=== PATIENT | male | born 1950 | race African-American/Black ===

== ENCOUNTER 2017-05-25 22:07 | Inpatient (IN) ==
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
[2017-05-25] MEDS ORDERED: MORPHINE 2 MG/1 ML SYRINGE IV STA (22:26)
[2017-05-25] MEDS ORDERED: ONDANSETRON 4 MG/2 ML VIAL IV STA (22:26)
[2017-05-25] MEDS ORDERED: MORPHINE 2 MG/1 ML SYRINGE ONE (22:28)
[2017-05-25] MEDS ORDERED: ONDANSETRON 4 MG/2 ML VIAL ONE (23:33)
[2017-05-26] MEDS ORDERED: MORPHINE 2 MG/1 ML SYRINGE IV STA
[2017-05-26] MEDS ORDERED: ONDANSETRON 4 MG/2 ML VIAL IV STA
[2017-05-26 01:46] LABS: Basophils % 0.4 % (0.0-0.8); Eosinophils # 0.1 10*3/uL (0.0-0.87); Eosinophils % 1.9 % (0.00-10.9); Hematocrit 36.4 VOL% (42.0-52.0); Hemoglobin 12.9 GM/DL (14.0-18.0); Immature Granulocytes % 0.4 %; Immature Granulocytes Absolute 0.03 #; Lymphocytes # 1.8 10*3/uL (1.4-4.0); Lymphocytes % 26.6 % (21.2-54.2); Mean Corpuscular HGB Conc 35.4 GM/DL (32-36); Mean Corpuscular Hemoglobin 28 PG (27-34); Mean Corpuscular Volume 78.6 FL (87-102); Mean Platelet Volume 10.7 FL (9.6-12.0); Monocytes # 0.5 10*3/uL (0.11-0.8); Monocytes % 6.7 % (1.7-12.7); Neutrophils # 4.4 10*3/uL (1.4-7.4); Platelet Count 186 T/CUMM (130-400); Red Blood Count 4.63 MC/CUMM (3.8-5.5); Red Cell Distribution Width 12.4 % (9.3-17.3); White Blood Count 6.8 T/CUMM (4-12)
[2017-05-26 02:22] LABS: Alanine Aminotransferase 34 U/L (16-61); Albumin 3.6 G/DL (3.4-5.0); Alkaline Phosphatase 120 U/L (45-117); Aspartate Amino Transferase 30 U/L (0-37); Blood Urea Nitrogen 26 MG/DL (7-18); Calcium 8.5 MG/DL (8.5-10.1); Glucose 224 MG/DL (74-106); Sodium 136 MMOL/L (136-145); Total Protein 7.4 G/DL (6.4-8.3); Troponin I Only < 0.015 NG/ML (0.00-0.045)
[2017-05-26] MEDS ORDERED: SODIUM CHLORIDE 0.9% 2,000 ML IV STA (03:26)
[2017-05-26] MEDS ORDERED: ONDANSETRON 4 MG/2 ML VIAL IV PRN (03:26)
[2017-05-26] MEDS ORDERED: SODIUM CHLORIDE 0.45% 1,000 ML IV SCH (03:30)
[2017-05-26] MEDS ORDERED: DEXTROSE 50% 25 GM/50 ML VIAL IV PRN (06:00)
[2017-05-26] MEDS ORDERED: GLUCAGON 1 MG VIAL IM PRN ×2 (06:00→11:49)
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
[2017-05-26] MEDS: PANTOPRAZOLE 40 MG TABLET PO SCH (08:38)
[2017-05-26 09:52] LABS: Basophils % 0.3 % (0.0-0.8); Eosinophils # 0.1 10*3/uL (0.0-0.87); Eosinophils % 1.6 % (0.00-10.9); Hematocrit 36.5 VOL% (42.0-52.0); Hemoglobin 12.9 GM/DL (14.0-18.0); Immature Granulocytes % 0.2 %; Immature Granulocytes Absolute 0.01 #; Lymphocytes # 1.5 10*3/uL (1.4-4.0); Lymphocytes % 23.7 % (21.2-54.2); Mean Corpuscular HGB Conc 35.3 GM/DL (32-36); Mean Corpuscular Hemoglobin 28 PG (27-34); Mean Corpuscular Volume 79.2 FL (87-102); Mean Platelet Volume 10.3 FL (9.6-12.0); Monocytes # 0.5 10*3/uL (0.11-0.8); Monocytes % 7.4 % (1.7-12.7); Neutrophils # 4.2 10*3/uL (1.4-7.4); Neutrophils % 66.8 % (38.7-73.9); Platelet Count 174 T/CUMM (130-400); Red Blood Count 4.61 MC/CUMM (3.8-5.5); Red Cell Distribution Width 12.4 % (9.3-17.3); White Blood Count 6.3 T/CUMM (4-12)
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
[2017-05-26] MEDS ORDERED: DEXTROSE 50% 25 GM/50 ML SYRINGE IV PRN (11:49)
[2017-05-26] MEDS: INSULIN REGULAR 100 UNIT/ML SUBCUT SCH ×2 (17:35→21:36)
[2017-05-26] MEDS: INSULIN GLARGINE 100 UNIT/ML SUBCUT SCH (21:36)
[2017-05-27 04:46] LABS: Basophils % 0.6 % (0.0-0.8); Eosinophils # 0.2 10*3/uL (0.0-0.87); Eosinophils % 3.1 % (0.00-10.9); Hematocrit 35.1 VOL% (42.0-52.0); Hemoglobin 12.1 GM/DL (14.0-18.0); Immature Granulocytes % 0.2 %; Immature Granulocytes Absolute 0.01 #; Lymphocytes # 1.6 10*3/uL (1.4-4.0); Mean Corpuscular HGB Conc 34.5 GM/DL (32-36); Mean Corpuscular Hemoglobin 27 PG (27-34); Mean Corpuscular Volume 78.9 FL (87-102); Mean Platelet Volume 11.1 FL (9.6-12.0); Monocytes # 0.3 10*3/uL (0.11-0.8); Monocytes % 6.9 % (1.7-12.7); Neutrophils # 2.8 10*3/uL (1.4-7.4); Neutrophils % 57.2 % (38.7-73.9); Platelet Count 176 T/CUMM (130-400); Red Blood Count 4.45 MC/CUMM (3.8-5.5); Red Cell Distribution Width 12.5 % (9.3-17.3); White Blood Count 4.9 T/CUMM (4-12)
[2017-05-27 05:20] LABS: Calcium 7.7 MG/DL (8.5-10.1); Osmolality,Calculated 287.8 MOS/KG (273-304); Potassium 4.1 MMOL/L (3.5-5.1)
[2017-05-27] MEDS: PANTOPRAZOLE 40 MG TABLET PO SCH (08:41)
[2017-05-27] MEDS: INSULIN REGULAR 100 UNIT/ML SUBCUT SCH ×4 (08:42→20:58)
[2017-05-27] MEDS: INSULIN GLARGINE 100 UNIT/ML SUBCUT SCH ×2 (08:42→21:04)
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
[2017-05-27] MEDS: SODIUM CHLORIDE 0.9% 1,000 ML IV SCH ×2 (12:17→22:26)
[2017-05-27] MEDS: ACETAMINOPHEN 325 MG TABLET PO PRN ×2 (12:24→19:35)
[2017-05-28] MEDS: ACETAMINOPHEN 325 MG TABLET PO PRN ×2 (06:38→18:04)
[2017-05-28] MEDS: INSULIN REGULAR 100 UNIT/ML SUBCUT SCH ×4 (08:14→22:07)
[2017-05-28] MEDS: INSULIN GLARGINE 100 UNIT/ML SUBCUT SCH ×2 (08:14→22:05)
[2017-05-28] MEDS: PANTOPRAZOLE 40 MG TABLET PO SCH (08:15)
[2017-05-28 09:03] LABS: Basophils % 0.1 % (0.0-0.8); Hematocrit 36.8 VOL% (42.0-52.0); Hemoglobin 13.1 GM/DL (14.0-18.0); Immature Granulocytes % 0.4 %; Immature Granulocytes Absolute 0.03 #; Lymphocytes # 0.5 10*3/uL (1.4-4.0); Lymphocytes % 7.2 % (21.2-54.2); Mean Corpuscular HGB Conc 35.6 GM/DL (32-36); Mean Corpuscular Hemoglobin 28 PG (27-34); Mean Corpuscular Volume 78.3 FL (87-102); Mean Platelet Volume 10.5 FL (9.6-12.0); Monocytes # 0.3 10*3/uL (0.11-0.8); Monocytes % 3.6 % (1.7-12.7); Neutrophils # 6.5 10*3/uL (1.4-7.4); Neutrophils % 88.7 % (38.7-73.9); Platelet Count 162 T/CUMM (130-400); Red Cell Distribution Width 12.7 % (9.3-17.3); White Blood Count 7.3 T/CUMM (4-12)
--- NOTE | 2017-05-28 09:32 | XRay Report ---
XR chest 2V Date: 05/28/2017 8:42 AM History: Fever, cough Comparison: 05/15/2016 Technique: PA and lateral chest Findings: The heart is normal in size. Atelectasis/infiltration in both lower lobes with very small pleural effusions. Degenerative changes are noted with prior cholecystectomy. Mild gaseous distention of the visualized bowel. Impression: Bilateral lower lobe pneumonia with associated atelectasis and mild ileus. PROCEDURE INTERPRETED AT [facility] DEPARTMENT OF RADIOLOGY Final Report Signed by: Dr. Silvia Rodas
[2017-05-28 09:36] LABS: Calcium 8.1 MG/DL (8.5-10.1); Osmolality,Calculated 280.8 MOS/KG (273-304); Potassium 3.8 MMOL/L (3.5-5.1)
[2017-05-28 09:39] LABS: Albumin 2.9 G/DL (3.4-5.0); Bilirubin,Direct 0.44 MG/DL (0.0-0.20); Bilirubin,Indirect 1.7 MG/DL (0.0-1.0); Bilirubin,Total 2.1 MG/DL (0.2-1.0); Total Protein 6.6 G/DL (6.4-8.3)
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
[2017-05-28] MEDS: cefTRIAXone 1,000 MG in SODIUM CHLORIDE 0.9% 100 ML IV SCH (11:27)
[2017-05-28 12:18] LABS: HIV Antigen/Antibody Result Nonreactive (Nonreactive)
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
[2017-05-28 13:48] LABS: Apearance,Urine CLEAR (Clear); Bacteria,Urine Few /HPF (Few); Bilirubin,Urine Negative (Negative); Blood, Urine Small mg/dL (Negative); Glucose,Urine (UA) >=500 mg/dL (Negative); Ketones,Urine 20 mg/dL (Negative); Mucus,Urine Occasional /LPF (Occasional); Nitrite,Urine Negative (Negative); Protein,Urine Negative; RBC,Urine 3 /HPF (0-4); Urine Color Yellow (Yellow); Urine Urobilinogen < 2.0 EU/DL (0.2-1.0); WBC,Urine 12 /HPF (0-6)
[2017-05-28] MEDS: ENOXAPARIN 40 MG/0.4 ML SYRINGE SUBCUT SCH (14:24)
--- NOTE | 2017-05-28 15:06 | Physician Query Form ---
CLICK EDIT DOCUMENT TO SELECT QUERY ANSWER --> OK --> SIGN Anna Anthony RN Clinical Textbook Associate W) [phone] (f) [phone] [email or web address] PROVIDERS: Make your selection(s) from the choices in EACH section by typing an "x" and enter comments in the comment section. Please use your independent medical judgment in providing your response. This request does not imply that any particular answer is desired or expected. CLINICAL INDICATORS: (Providers should not edit this section) Based on lab results of creatinine on admission of 1.70 with a GFR of 67 and decreased to 1.40. Pt. treated with IV fluids of Normal Saline. Clarify which of the following most accurately represents the patient's renal status: (x ) Acute kidney injury (non-traumatic) ( ) Acute renal failure ( ) Acute renal failure with underlying Chronic Kidney Disease (CKD) - please provide stage below ( ) CKD - please provide stage below ( ) Other, please specify: ( ) Clinically unable to determine Chronic Kidney Disease Stages Source: National Kidney Disease Foundation ( ) Stage I (eGFR > or = 90) ( ) Stage II (eGFR 60 - 89) ( ) Stage III (eGFR 30 - 59) ( ) Stage IV (eGFR 15 - 29) ( ) Stage V (eGFR < 15 or dialysis) COMMENTS: PLEASE ALSO DOCUMENT RESPONSE IN PROGRESS NOTES AND/OR DISCHARGE SUMMARY Use of terms such as suspected, likely, or probable (associated with a specific diagnosis that is being evaluated, monitored, or treated as if it exists) are acceptable and can be restated in the discharge summary if not ruled out. MTDD
--- NOTE | 2017-05-28 18:32 | XRay Report ---
Three-view left foot May 28, 2017 Indication: Foot pain Comparison images not available Findings: Prominent erosions across the first MTP joint with overhanging edges. Mild joint space narrowing. Prominent surrounding soft tissues. Additional small erosions with proliferative changes involving the tarsometatarsal joints . No fracture or subluxation. Impression: 1. Osteoarthritic changes throughout the distal midfoot with advanced erosive peripheral changes across the first MCP joint. Findings may represent crystalline deposition arthrosis. Correlate with joint aspiration if clinically concerned. 2. No acute abnormality. PROCEDURE INTERPRETED AT [facility] DEPARTMENT OF RADIOLOGY Final Report Signed by: Eulalio Lewis
--- NOTE | 2017-05-28 19:25 | Magnetic Resonance Report ---
MRI cervical spine May 28, 2017 Indication: Radicular pain and weakness Comparison: CT scan performed May 25, 2017 Technique: Multisequence, multiplanar imaging of the cervical spine was performed in routine fashion prior to and after the administration of 20 mL gadolinium based contrast Findings: Preservation of cervical lordosis, vertebral body height and marrow signal. Fracture of the C6 posterior elements with no significant deformity. Craniocervical junction is unremarkable. Visualized brain parenchyma is within normal limits. C2-C3: Early endplate osteophytosis. No significant central or foraminal stenosis. C3-C4: Left central disc protrusion with hypertrophic endplate changes likely superimposed on congenitally narrow canal results in severe central stenosis and moderate bilateral foraminal narrowing, left greater than right. Slight mass effect along the ventral cord. Canal AP diameter measures 6.0 mm. C4-C5: Concentric disc bulging with hypertrophic endplate changes superimposed on congenitally narrowed canal results in severe central stenosis with slight mass effect on the adjacent cord. Faint T2 signal abnormality within the ventral cord at this level. Moderate bilateral foraminal narrowing. Canal AP diameter measures 6.4 mm. C5-C6 posterior disc bulging with hypertrophic endplate changes results in severe central stenosis with canal AP diameter measuring 7.2 mm C6-C7: Small central disc protrusion with mild hypertrophic changes across the endplates. No significant central or foraminal stenosis. C7-T1: Unremarkable No abnormal enhancement. Remainder of the cord signal is unremarkable. Impression: 1. Multilevel degenerative disc changes superimposed on likely congenitally narrow canal results in severe central stenosis at multiple levels of the upper cervical spine as detailed above. 2. Multilevel moderate to severe foraminal narrowing, cannot exclude underlying impingement 3. Patchy signal changes within the ventral cord at approximately the C4 level, likely reactive PROCEDURE INTERPRETED AT [facility] DEPARTMENT OF RADIOLOGY Final Report Signed by: Eulalio Lewis
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
[2017-05-29 04:40] LABS: Basophils % 0.4 % (0.0-0.8); Hematocrit 37.6 VOL% (42.0-52.0); Hemoglobin 13.1 GM/DL (14.0-18.0); Immature Granulocytes % 0.3 %; Immature Granulocytes Absolute 0.02 #; Lymphocytes # 0.8 10*3/uL (1.4-4.0); Lymphocytes % 9.5 % (21.2-54.2); Mean Corpuscular HGB Conc 34.8 GM/DL (32-36); Mean Corpuscular Hemoglobin 27 PG (27-34); Mean Corpuscular Volume 77.8 FL (87-102); Mean Platelet Volume 10.9 FL (9.6-12.0); Monocytes # 0.6 10*3/uL (0.11-0.8); Monocytes % 7.5 % (1.7-12.7); Neutrophils # 6.5 10*3/uL (1.4-7.4); Neutrophils % 82.3 % (38.7-73.9); Platelet Count 156 T/CUMM (130-400); Red Blood Count 4.83 MC/CUMM (3.8-5.5); Red Cell Distribution Width 12.7 % (9.3-17.3); White Blood Count 7.9 T/CUMM (4-12)
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
[2017-05-29] MEDS: PANTOPRAZOLE 40 MG TABLET PO SCH (09:34)
[2017-05-29] MEDS: INSULIN GLARGINE 100 UNIT/ML SUBCUT SCH ×2 (09:34→21:05)
[2017-05-29] MEDS: INSULIN REGULAR 100 UNIT/ML SUBCUT SCH ×4 (09:34→21:04)
[2017-05-29] MEDS: cefTRIAXone 1,000 MG in SODIUM CHLORIDE 0.9% 100 ML IV SCH (10:44)
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
[2017-05-29] MEDS: DOCUSATE SODIUM 100 MG CAPSULE PO SCH ×2 (13:32→21:07)
[2017-05-29] MEDS: BISACODYL 10 MG SUPP RECTAL PRN (13:32)
[2017-05-29] MEDS: ENOXAPARIN 40 MG/0.4 ML SYRINGE SUBCUT SCH (14:05)
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
[2017-05-29] MEDS: ACETAMINOPHEN 325 MG TABLET PO PRN (15:46)
[2017-05-30] MEDS: INSULIN REGULAR 100 UNIT/ML SUBCUT SCH ×4 (07:55→21:16)
[2017-05-30] MEDS: INSULIN GLARGINE 100 UNIT/ML SUBCUT SCH ×2 (08:14→21:15)
[2017-05-30] MEDS: PANTOPRAZOLE 40 MG TABLET PO SCH (08:14)
[2017-05-30] MEDS: DOCUSATE SODIUM 100 MG CAPSULE PO SCH ×2 (08:14→21:15)
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
[2017-05-30] MEDS: ENOXAPARIN 40 MG/0.4 ML SYRINGE SUBCUT SCH (16:06)
[2017-05-30] MEDS: cefTRIAXone 1,000 MG in SODIUM CHLORIDE 0.9% 100 ML IV SCH (16:06)
[2017-05-30] MEDS: LACTULOSE 20 GM/30 ML UDCUP PO PRN (16:27)
[2017-05-30] MEDS: CIPROFLOXACIN INJ 400 MG in PREMIX 1 EACH IV SCH (17:19)
[2017-05-31 03:25] LABS: Basophils % 0.3 % (0.0-0.8); Eosinophils # 0.1 10*3/uL (0.0-0.87); Eosinophils % 0.9 % (0.00-10.9); Hematocrit 35.1 VOL% (42.0-52.0); Hemoglobin 12.3 GM/DL (14.0-18.0); Immature Granulocytes % 0.4 %; Immature Granulocytes Absolute 0.03 #; Lymphocytes # 1.6 10*3/uL (1.4-4.0); Lymphocytes % 20.6 % (21.2-54.2); Mean Corpuscular Hemoglobin 28 PG (27-34); Mean Corpuscular Volume 78.7 FL (87-102); Mean Platelet Volume 11.2 FL (9.6-12.0); Monocytes % 12.2 % (1.7-12.7); Neutrophils # 5.2 10*3/uL (1.4-7.4); Neutrophils % 65.6 % (38.7-73.9); Platelet Count 183 T/CUMM (130-400); Red Blood Count 4.46 MC/CUMM (3.8-5.5); Red Cell Distribution Width 13.1 % (9.3-17.3); White Blood Count 7.9 T/CUMM (4-12)
[2017-05-31 04:44] LABS: Platelet Estimate Normal
[2017-05-31] MEDS: CIPROFLOXACIN INJ 400 MG in PREMIX 1 EACH IV SCH ×2 (05:09→18:36)
[2017-05-31] MEDS ORDERED: MORPHINE 2 MG/1 ML SYRINGE IV ONE (06:53)
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
[2017-05-31] MEDS: DOCUSATE SODIUM 100 MG CAPSULE PO SCH ×2 (09:29→20:53)
[2017-05-31] MEDS: PANTOPRAZOLE 40 MG TABLET PO SCH (09:30)
[2017-05-31] MEDS: INSULIN REGULAR 100 UNIT/ML SUBCUT SCH ×4 (09:31→20:54)
[2017-05-31] MEDS: INSULIN GLARGINE 100 UNIT/ML SUBCUT SCH ×2 (09:33→20:54)
--- NOTE | 2017-05-31 10:55 | XRay Report ---
2 view chest May 31, 2017 at 0947 hours Indication: Shortness of breath Comparison: Not available Findings: Cardiomediastinal contours are normal. Bibasilar atelectasis with trace pleural effusions. No acute osseous abnormalities. Visualized upper abdomen demonstrates no acute pathology. Impression: Small bilateral pleural effusions with bibasilar atelectasis PROCEDURE INTERPRETED AT [facility] DEPARTMENT OF RADIOLOGY Final Report Signed by: Eulalio Lewis
--- NOTE | 2017-05-31 11:08 | CT Report ---
Exam: CT chest with intravenous contrast Clinical History: Abnormal chest x-ray, right hilar density Technique: Axial computed tomography images of the chest with intravenous contrast. The CT exam was performed using one or more of the following dose reduction techniques: Automated exposure control, adjustment of the mA and/or kV according to patient size, or use of iterative reconstruction technique. Contrast: 100 mL of Omnipaque 350 administered intravenously. Comparison: No relevant prior studies available Findings: Lungs: No mass. No consolidation. Pleural spaces: No pneumothorax. Small bilateral pleural effusions and dependent atelectasis Heart: Mild cardiomegaly. No pericardial effusion Mediastinum: Intact. Normal trachea Bones/joints: Intact. No acute fracture. No dislocation. Age-appropriate degenerative changes throughout the spinal axis. Soft tissues: No radiopaque foreign body. Bilateral gynecomastia Vasculature: Intact Lymph nodes: Prominent right hilar lymph nodes are noted. Upper abdomen: Prior cholecystectomy Impression: 1. Small bilateral pleural effusions with compressive atelectasis 2. Few prominent right hilar lymph nodes, likely reactive. 3-6 month follow-up suggested to ensure resolution and/or stability PROCEDURE INTERPRETED AT [facility] DEPARTMENT OF RADIOLOGY Final Report Signed by: Eulalio Lewis
[2017-05-31] MEDS: METAXALONE 800 MG TABLET PO PRN (13:10)
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
--- NOTE | 2017-05-31 15:01 | Ultrasound Report ---
Exam: Scrotal ultrasound Date: May 31, 2017 at 1320 hours Indication: Pain Comparison: None Findings: Testicles are symmetric in shape, size and echotexture. No demonstratable calcifications or mass lesions. Right testicle. 3.4 x 4.8 x 2.5 cm Right epididymis 0.7 x 0.8 x 1.2 cm. Left testicle. 3.2 x 5.3 x 2.1 cm Left epididymis. 1.1 x 1.0 x 1.6 cm No hydrocele. No varicocele. Normal symmetric flow bilaterally. No scrotal wall thickening. Impression: 1. Normal scrotal ultrasound PROCEDURE INTERPRETED AT [facility] DEPARTMENT OF RADIOLOGY Final Report Signed by: Eulalio Lewis
[2017-05-31] MEDS: ENOXAPARIN 40 MG/0.4 ML SYRINGE SUBCUT SCH (15:44)
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
[2017-05-31] MEDS: cefTRIAXone 1,000 MG in SODIUM CHLORIDE 0.9% 100 ML IV SCH (17:25)
[2017-05-31] MEDS: LACTULOSE 20 GM/30 ML UDCUP PO PRN (20:54)
[2017-06-01] MEDS: BISACODYL 10 MG SUPP RECTAL PRN (00:11)
[2017-06-01] MEDS: CIPROFLOXACIN INJ 400 MG in PREMIX 1 EACH IV SCH ×2 (05:38→20:27)
[2017-06-01 07:26] LABS: Calcium 8.2 MG/DL (8.5-10.1); Osmolality,Calculated 271.1 MOS/KG (273-304); Potassium 3.6 MMOL/L (3.5-5.1)
[2017-06-01] MEDS: INSULIN REGULAR 100 UNIT/ML SUBCUT SCH ×4 (07:46→20:28)
[2017-06-01] MEDS: ACETAMINOPHEN 325 MG TABLET PO PRN (09:30)
[2017-06-01] MEDS: PANTOPRAZOLE 40 MG TABLET PO SCH (09:32)
[2017-06-01] MEDS: INSULIN GLARGINE 100 UNIT/ML SUBCUT SCH ×2 (09:35→21:43)
[2017-06-01] MEDS ORDERED: MAGNESIUM CITRATE 300 ML BOTTLE PO PRN (12:26)
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
[2017-06-01] MEDS: ENOXAPARIN 40 MG/0.4 ML SYRINGE SUBCUT SCH (13:44)
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
--- NOTE | 2017-06-01 16:17 | Magnetic Resonance Report ---
Exam: MRI lumbar spine without contrast Indication: 66-year-old male with severe back pain Comparison: CT abdomen and pelvis performed on May 15, 2016 Technique: Multisequence, multiplanar imaging of the lumbar spine was performed without contrast Findings: Preservation of lumbar lordosis. There is mild irregularity involving the superior endplate of L1 with increased T2 signal involving the endplate and adjacent prevertebral soft tissues. Preservation of the remaining vertebral body heights and marrow signal. Degenerative endplate signal noted along the superior endplate of L5.. Cord signal is normal terminating at T12-L1. No intra or extradural abnormalities. T12-L1: Mild irregularity and signal changes across the superior endplate of L1 L1-L2: Lateral endplate spurring. No associated central or foraminal stenosis L2-L3: Slight annular disc bulging and hypertrophic changes. No significant central or foraminal L3-L4: Slight annular disc bulging flattens the ventral thecal sac. Mild facet hypertrophy. 3 full configuration spinal canal. No significant stenosis L4-L5: Slight annular disc bulging with [id number] facet hypertrophy. Trefoil configuration of the central canal no significant central stenosis. Effacement of lateral recesses with moderate severe bilateral foraminal narrowing L5-S1: Proliferative endplate changes with moderate facet hypertrophy. No central stenosis. Mild bilateral foraminal narrowing No additional soft tissue abnormalities. Impression: 1. Findings to suggest subacute superior endplate fracture of L1 2. Moderate to severe bilateral foraminal narrowing at L4-5 secondary to facet arthrosis and prominent endplate spurring 3. Other findings as discussed above PROCEDURE INTERPRETED AT [facility] DEPARTMENT OF RADIOLOGY Final Report Signed by: Eulalio Lewis
--- NOTE | 2017-06-01 16:41 | Event Note ---
Patient has been gone for MRI. Will check back on him tomorrow morning.
[2017-06-01] MEDS: DOCUSATE SODIUM 100 MG CAPSULE PO SCH ×2 (16:47→21:43)
[2017-06-01] MEDS: cefTRIAXone 1,000 MG in SODIUM CHLORIDE 0.9% 100 ML IV SCH (16:59)
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
[2017-06-01] MEDS: METAXALONE 800 MG TABLET PO PRN (21:43)
[2017-06-02] MEDS: CIPROFLOXACIN INJ 400 MG in PREMIX 1 EACH IV SCH (05:08)
[2017-06-02] MEDS: METAXALONE 800 MG TABLET PO PRN (05:10)
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
[2017-06-02] MEDS: INSULIN REGULAR 100 UNIT/ML SUBCUT SCH ×4 (07:46→21:11)
[2017-06-02] MEDS: DOCUSATE SODIUM 100 MG CAPSULE PO SCH (08:07)
[2017-06-02] MEDS: PANTOPRAZOLE 40 MG TABLET PO SCH (08:07)
[2017-06-02] MEDS: INSULIN GLARGINE 100 UNIT/ML SUBCUT SCH ×2 (08:07→21:11)
[2017-06-02] MEDS: MORPHINE 2 MG/1 ML SYRINGE IV PRN ×3 (09:29→16:58)
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
[2017-06-02] MEDS: ENOXAPARIN 40 MG/0.4 ML SYRINGE SUBCUT SCH (15:42)
[2017-06-02] MEDS: oxyCODONE/ACETAMINOPHEN 5-325 MG TABLET PO PRN (19:49)
[2017-06-02] MEDS ORDERED: METHYLNALTREXONE 12 MG/0.6 ML VIAL SUBCUT ONE (20:33)
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
[2017-06-02] MEDS: CIPROFLOXACIN 500 MG TABLET PO SCH (21:10)
[2017-06-02] MEDS: POLYETHYLENE GLYCOL POWDER 17 GM PACK PO SCH (21:21)
[2017-06-03] MEDS: MORPHINE 2 MG/1 ML SYRINGE IV PRN ×2 (01:21→21:44)
[2017-06-03] MEDS: METAXALONE 800 MG TABLET PO PRN ×2 (02:28→08:09)
[2017-06-03] MEDS: oxyCODONE/ACETAMINOPHEN 5-325 MG TABLET PO PRN ×3 (05:53→18:24)
--- NOTE | 2017-06-03 06:10 | Pain Management Progress Note ---
Assessment and Plan (1) L1 vertebral fracture Status: Acute Assessment and plan: I will recommend conservative treatment for now may need a LSO brace fitting. I will follow him as an outpatient and may need kyphoplasty at some point 06/03 continue current plan for pain management at this time Current Visit: Yes Qualifiers: Encounter type: initial encounter Fracture type: closed Fracture morphology: wedge compression Qualified Code(s): S32.010A - Wedge compression fracture of first lumbar vertebra, initial encounter for closed fracture Pain - Subjective Interval history: His back pain seems to be adequately controlled current pain treatment regimen. Discharge planning is in effect Exam - Constitutional Vitals: Period Temp Pulse Resp BP Sys/Landeros Pulse Ox Last 24 Hr 97.5 F-99.7 F 77-85 18-20 141-164/69-93 90-100 General appearance: no acute distress - Head Head exam: Present: normal inspection - Eye Eye exam: Present: EOMI Pupils: Present: KEANU - ENT ENT exam: Present: normal exam Ear exam: Present: intact Mouth exam: Present: normal external inspection - Neck Neck exam: Present: normal inspection - Respiratory Respiratory exam: Present: clear to auscultation bilaterally - Cardiovascular Cardiovascular exam: Present: RRR - GI/Abdominal GI/Abdominal exam: Present: normal bowel sounds - Extremities Exam Extremities exam: Present: normal inspection - Back Exam Back exam: Present: vertebral tenderness - Neurological Exam Neurological exam: Present: oriented X3 - Skin Skin exam: Present: normal color Results - Labs CBC & BMP: 05/31/17 02:47 06/01/17 05:47 Lab Results: I have reviewed the past 24 hour labs Quality Measures - VTE Contraindication to Pharmacological VTE Prophylaxis: High Risk of Bleeding Specialty Discharge - Follow Up or Referrals
[2017-06-03] MEDS ORDERED: MAGNESIUM CITRATE 300 ML BOTTLE PO ONE (07:01)
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
[2017-06-03] MEDS: INSULIN REGULAR 100 UNIT/ML SUBCUT SCH ×4 (07:14→21:54)
[2017-06-03] MEDS ORDERED: METHYLNALTREXONE 12 MG/0.6 ML VIAL SUBCUT ONE (08:00)
[2017-06-03] MEDS: CIPROFLOXACIN 500 MG TABLET PO SCH ×2 (08:08→21:46)
[2017-06-03 08:09] LABS: Calcium 8.4 MG/DL (8.5-10.1); Magnesium 2.1 MG/DL (1.8-2.4); Osmolality,Calculated 267.1 MOS/KG (273-304); Potassium 3.8 MMOL/L (3.5-5.1)
[2017-06-03] MEDS: POLYETHYLENE GLYCOL POWDER 17 GM PACK PO SCH ×3 (08:09→21:53)
[2017-06-03] MEDS: PANTOPRAZOLE 40 MG TABLET PO SCH (08:09)
[2017-06-03] MEDS: INSULIN GLARGINE 100 UNIT/ML SUBCUT SCH ×2 (08:09→21:46)
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
[2017-06-03] MEDS: ENOXAPARIN 40 MG/0.4 ML SYRINGE SUBCUT SCH (13:26)
[2017-06-04] MEDS: oxyCODONE/ACETAMINOPHEN 5-325 MG TABLET PO PRN ×2 (00:18→05:12)
[2017-06-04] MEDS: MORPHINE 2 MG/1 ML SYRINGE IV PRN ×2 (06:18→12:21)
[2017-06-04] MEDS: INSULIN GLARGINE 100 UNIT/ML SUBCUT SCH (08:00)
[2017-06-04] MEDS: INSULIN REGULAR 100 UNIT/ML SUBCUT SCH ×2 (08:00→11:20)
[2017-06-04] MEDS: CIPROFLOXACIN 500 MG TABLET PO SCH (08:43)
[2017-06-04] MEDS: POLYETHYLENE GLYCOL POWDER 17 GM PACK PO SCH (08:44)
[2017-06-04] MEDS: PANTOPRAZOLE 40 MG TABLET PO SCH (08:44)
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
[2017-06-04 11:26] VITALS: BP 141/74
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
[2017-06-04] MEDS: ENOXAPARIN 40 MG/0.4 ML SYRINGE SUBCUT SCH (14:01)
== END 2017-06-04 14:20 | disposition home or self-care (01) | DRG 194 ==
LOC: EDUNIT# → N.ED 22:07 → N.EDINP 22:07 → N.3E 05-26 03:50
PROVIDERS: ADMIT Surgery; ATTEND Surgery

== ENCOUNTER 2017-07-09 10:25 | Observation (INO) ==
[2017-07-09] MEDS ORDERED: DEXTROSE 5% 250 ML IV ONE (11:06)
[2017-07-09 11:36] LABS: Basophils % 0.6 % (0.0-0.8); Eosinophils # 0.1 10*3/uL (0.0-0.87); Eosinophils % 1.2 % (0.00-10.9); Hematocrit 33.8 VOL% (42.0-52.0); Hemoglobin 11.4 GM/DL (14.0-18.0); Immature Granulocytes % 0.4 %; Immature Granulocytes Absolute 0.02 #; Lymphocytes # 1.6 10*3/uL (1.4-4.0); Lymphocytes % 30.8 % (21.2-54.2); Mean Corpuscular HGB Conc 33.7 GM/DL (32-36); Mean Corpuscular Hemoglobin 27 PG (27-34); Mean Corpuscular Volume 81.1 FL (87-102); Mean Platelet Volume 9.1 FL (9.6-12.0); Monocytes # 0.3 10*3/uL (0.11-0.8); Monocytes % 6.5 % (1.7-12.7); Neutrophils # 3.1 10*3/uL (1.4-7.4); Neutrophils % 60.5 % (38.7-73.9); Platelet Count 378 T/CUMM (130-400); Red Blood Count 4.17 MC/CUMM (3.8-5.5); Red Cell Distribution Width 13.4 % (9.3-17.3); White Blood Count 5.1 T/CUMM (4-12)
[2017-07-09 11:44] LABS: Apearance,Urine CLEAR (Clear); Bilirubin,Urine Negative (Negative); Blood, Urine Negative (Negative); Glucose,Urine (UA) Negative (Negative); Hyaline Casts,Urine 2 /LPF (0-3); Ketones,Urine Negative (Negative); Nitrite,Urine Negative (Negative); Protein,Urine Negative; RBC,Urine <1 /HPF (0-4); Sperm,Urine Occasional /HPF (Negative); Urine Color Straw (Yellow); Urine Specific Gravity 1.009 (1.001-1.035); Urine Urobilinogen < 2.0 EU/DL (0.2-1.0); WBC,Urine 1 /HPF (0-6)
[2017-07-09 11:58] LABS: PT Patient Result 10.5 SECS; Partial Thromboplastin Time 30.3 SECS (0-40)
[2017-07-09 12:02] LABS: Barbiturates Screen,Urine Negative (Negative); Benzodiazepines Screen,Urine Negative (Negative); Cannabinoid Screen,Urine Negative (Negative); Opiate Screen,Urine Negative (Negative); Phencyclidine Screen,Urine Negative (Negative)
[2017-07-09 12:07] LABS: Alanine Aminotransferase 22 U/L (16-61); Albumin 3.2 G/DL (3.4-5.0); Alkaline Phosphatase 163 U/L (45-117); Aspartate Amino Transferase 18 U/L (0-37); Blood Urea Nitrogen 19 MG/DL (7-18); Calcium 8.5 MG/DL (8.5-10.1); Glucose 53 MG/DL (74-106); Osmolality,Calculated 277.4 MOS/KG (273-304); Potassium 3.8 MMOL/L (3.5-5.1); Sodium 140 MMOL/L (136-145); Total Protein 7.7 G/DL (6.4-8.3); Troponin I Only < 0.015 NG/ML (0.00-0.045)
[2017-07-09] MEDS ORDERED: GLUCAGON 1 MG VIAL IM PRN ×2 (14:47→22:08)
[2017-07-09] MEDS ORDERED: ONDANSETRON 4 MG/2 ML VIAL IV PRN (14:47)
[2017-07-09] MEDS ORDERED: METHOCARBAMOL 750 MG TABLET PO PRN (14:47)
[2017-07-09] MEDS ORDERED: ACETAMINOPHEN 325 MG TABLET PO PRN (14:47)
[2017-07-09] MEDS ORDERED: DEXTROSE 50% 25 GM/50 ML VIAL IV PRN ×2 (14:47→22:08)
[2017-07-09] MEDS: ENOXAPARIN 40 MG/0.4 ML SYRINGE SUBCUT SCH (15:05)
[2017-07-09] MEDS: DEXTROSE 5% NACL 0.45% 1,000 ML IV SCH (15:05)
[2017-07-09] MEDS: CARVEDILOL 6.25 MG TABLET PO SCH ×2 (16:16→21:26)
[2017-07-09] MEDS: oxyCODONE/ACETAMINOPHEN 5-325 MG TABLET PO PRN (19:29)
[2017-07-10] MEDS: oxyCODONE/ACETAMINOPHEN 5-325 MG TABLET PO PRN ×3 (04:32→21:38)
[2017-07-10] MEDS: DEXTROSE 5% NACL 0.45% 1,000 ML IV SCH (04:32)
[2017-07-10 06:15] LABS: Basophils % 0.3 % (0.0-0.8); Eosinophils # 0.1 10*3/uL (0.0-0.87); Eosinophils % 0.9 % (0.00-10.9); Hematocrit 27.9 VOL% (42.0-52.0); Hemoglobin 9.5 GM/DL (14.0-18.0); Immature Granulocytes % 0.4 %; Immature Granulocytes Absolute 0.04 #; Lymphocytes % 18.1 % (21.2-54.2); Mean Corpuscular HGB Conc 34.1 GM/DL (32-36); Mean Corpuscular Hemoglobin 28 PG (27-34); Mean Corpuscular Volume 80.6 FL (87-102); Monocytes # 0.5 10*3/uL (0.11-0.8); Monocytes % 4.3 % (1.7-12.7); Neutrophils # 8.5 10*3/uL (1.4-7.4); Platelet Count 310 T/CUMM (130-400); Red Blood Count 3.46 MC/CUMM (3.8-5.5); Red Cell Distribution Width 13.6 % (9.3-17.3); White Blood Count 11.1 T/CUMM (4-12)
[2017-07-10 06:50] LABS: Calcium 7.6 MG/DL (8.5-10.1); Potassium 4.4 MMOL/L (3.5-5.1); Risk Ratio 3.94; VLDL CHOLESTEROL 25.2 MG/DL
[2017-07-10] MEDS: PANTOPRAZOLE 40 MG TABLET PO SCH (08:33)
[2017-07-10] MEDS: CARVEDILOL 6.25 MG TABLET PO SCH ×2 (08:33→20:16)
[2017-07-10] MEDS: INSULIN LISPRO 100 UNIT/ML SUBCUT SCH ×3 (08:33→17:47)
[2017-07-10] MEDS: ENOXAPARIN 40 MG/0.4 ML SYRINGE SUBCUT SCH (14:01)
[2017-07-11 07:08] LABS: Basophils % 0.4 % (0.0-0.8); Eosinophils # 0.2 10*3/uL (0.0-0.87); Eosinophils % 2.7 % (0.00-10.9); Hemoglobin 9.3 GM/DL (14.0-18.0); Immature Granulocytes % 0.2 %; Immature Granulocytes Absolute 0.01 #; Lymphocytes # 1.6 10*3/uL (1.4-4.0); Lymphocytes % 29.1 % (21.2-54.2); Mean Corpuscular HGB Conc 34.4 GM/DL (32-36); Mean Corpuscular Hemoglobin 27 PG (27-34); Mean Corpuscular Volume 79.6 FL (87-102); Mean Platelet Volume 9.6 FL (9.6-12.0); Monocytes # 0.4 10*3/uL (0.11-0.8); Monocytes % 7.7 % (1.7-12.7); Neutrophils # 3.3 10*3/uL (1.4-7.4); Neutrophils % 59.9 % (38.7-73.9); Platelet Count 291 T/CUMM (130-400); Red Blood Count 3.39 MC/CUMM (3.8-5.5); Red Cell Distribution Width 13.2 % (9.3-17.3); White Blood Count 5.5 T/CUMM (4-12)
[2017-07-11 07:35] LABS: Calcium 7.9 MG/DL (8.5-10.1); Osmolality,Calculated 282.2 MOS/KG (273-304); Potassium 4.4 MMOL/L (3.5-5.1)
[2017-07-11 07:56] VITALS: BP 152/81
[2017-07-11] MEDS ORDERED: COSYNTROPIN 0.25 MG VIAL IV ONE ×2 (08:00→09:00)
[2017-07-11] MEDS: oxyCODONE/ACETAMINOPHEN 5-325 MG TABLET PO PRN (08:33)
[2017-07-11] MEDS: CARVEDILOL 6.25 MG TABLET PO SCH (08:33)
[2017-07-11] MEDS: PANTOPRAZOLE 40 MG TABLET PO SCH (08:33)
[2017-07-11] MEDS ORDERED: INSULIN GLARGINE 100 UNIT/ML SUBCUT SCH (10:30)
[2017-07-11] MEDS: ENOXAPARIN 40 MG/0.4 ML SYRINGE SUBCUT SCH (14:58)
[2017-07-13 11:56] LABS: C-Peptide 1.9 ng/mL (1.1 - 4.4)
== END 2017-07-11 15:09 | disposition home or self-care (01) ==
LOC: EDUNIT# → EDBD → N.EDINP 10:25 → N.ED 10:25 → N.EDINP 14:35 → N.5E 14:59
PROVIDERS: ADMIT Internal Medicine; ATTEND Internal Medicine

== ENCOUNTER 2019-03-26 10:34 | Inpatient (IN) ==
[2019-03-26 12:43] LABS: Basophils % 0.6 % (0.0-0.8); Eosinophils # 0.1 10*3/uL (0.0-0.87); Eosinophils % 1.5 % (0.00-10.9); Hematocrit 36.6 VOL% (42.0-52.0); Hemoglobin 12.3 GM/DL (14.0-18.0); Immature Granulocytes % 0.2 %; Immature Granulocytes Absolute 0.01 #; Lymphocytes # 1.9 10*3/uL (1.4-4.0); Mean Corpuscular HGB Conc 33.6 GM/DL (32-36); Mean Corpuscular Volume 80.6 FL (87-102); Mean Platelet Volume 10.7 FL (9.6-12.0); Monocytes % 8.5 % (1.7-12.7); Neutrophils % 52.2 % (38.7-73.9); Platelet Count 217 T/CUMM (130-400); Red Blood Count 4.54 MC/CUMM (3.8-5.5); Red Cell Distribution Width 12.3 % (9.3-17.3); White Blood Count 5.2 T/CUMM (4-12)
[2019-03-26 12:58] LABS: Blood Urea Nitrogen 28 MG/DL (7-18); Glucose 396 MG/DL (74-106); Osmolality,Calculated 288.4 MOS/KG (273-304)
[2019-03-26 13:18] LABS: Apearance,Urine CLEAR (Clear); Bilirubin,Urine Negative (Negative); Blood, Urine Negative (Negative); Glucose,Urine (UA) >=500 mg/dL (Negative); Ketones,Urine Negative (Negative); Mucus,Urine Occasional /LPF (Occasional); Nitrite,Urine Negative (Negative); Protein,Urine Negative; RBC,Urine 4 /HPF (0-4); Sperm,Urine Occasional /HPF (Negative); Squamous Epithelial Cell,Urine Occasional /HPF (0-10); Urine Color Yellow (Yellow); Urine Specific Gravity 1.018 (1.001-1.035); Urine Urobilinogen < 2.0 EU/DL (0.2-1.0); WBC,Urine 1 /HPF (0-6)
[2019-03-26 13:39] LABS: Barbiturates Screen,Urine Negative (Negative); Benzodiazepines Screen,Urine Negative (Negative); Cannabinoid Screen,Urine Negative (Negative); Opiate Screen,Urine Negative (Negative); Phencyclidine Screen,Urine Negative (Negative)
[2019-03-26 13:45] LABS: Sedimentation Rate-Westergren 45 MM/HR (0-20)
[2019-03-26] MEDS ORDERED: ONDANSETRON 4 MG/2 ML VIAL IV PRN (14:51)
[2019-03-26] MEDS ORDERED: ACETAMINOPHEN 325 MG TABLET PO PRN (14:51)
[2019-03-26] MEDS ORDERED: MORPHINE 4 MG/1 ML VIAL IV PRN (14:51)
[2019-03-26] MEDS ORDERED: traZODone 50 MG TABLET PO PRN (14:51)
[2019-03-26] MEDS ORDERED: ENOXAPARIN 30 MG/0.3 ML SYRINGE SUBCUT SCH (15:00)
[2019-03-26] MEDS ORDERED: DEXTROSE 50% 25 GM/50 ML VIAL IV PRN ×3 (15:59→16:38)
[2019-03-26] MEDS ORDERED: GLUCAGON 1 MG VIAL IM PRN ×3 (15:59→16:38)
[2019-03-26] MEDS: SODIUM CHLORIDE 0.9% 1,000 ML IV SCH (16:13)
[2019-03-26] MEDS: PANTOPRAZOLE 40 MG TABLET PO SCH (16:19)
[2019-03-26] MEDS: PIPERACILLIN/TAZOBACTAM 3,375 MG in SODIUM CHLORIDE 0.9% 100 ML IV SCH (16:20)
[2019-03-26] MEDS: INSULIN REGULAR 100 UNIT/ML SUBCUT SCH ×2 (16:27→21:28)
[2019-03-26] MEDS: VANCOMYCIN INJ 1,500 MG in SODIUM CHLORIDE 0.9% 500 ML IV SCH (21:38)
[2019-03-27] MEDS: SODIUM CHLORIDE 0.9% 1,000 ML IV SCH ×3 (00:32→17:12)
[2019-03-27] MEDS: PIPERACILLIN/TAZOBACTAM 3,375 MG in SODIUM CHLORIDE 0.9% 100 ML IV SCH ×3 (00:33→20:20)
[2019-03-27 05:42] LABS: Basophils % 0.6 % (0.0-0.8); Eosinophils # 0.2 10*3/uL (0.0-0.87); Eosinophils % 3.6 % (0.00-10.9); Hematocrit 39.1 VOL% (42.0-52.0); Hemoglobin 12.7 GM/DL (14.0-18.0); Immature Granulocytes % 0.2 %; Immature Granulocytes Absolute 0.01 #; Lymphocytes # 2.3 10*3/uL (1.4-4.0); Lymphocytes % 43.3 % (21.2-54.2); Mean Corpuscular HGB Conc 32.5 GM/DL (32-36); Mean Corpuscular Volume 82.7 FL (87-102); Mean Platelet Volume 10.2 FL (9.6-12.0); Neutrophils % 43.3 % (38.7-73.9); Platelet Count 216 T/CUMM (130-400); Red Blood Count 4.73 MC/CUMM (3.8-5.5); Red Cell Distribution Width 12.6 % (9.3-17.3); White Blood Count 5.2 T/CUMM (4-12)
[2019-03-27 06:04] LABS: Albumin 3.6 G/DL (3.4-5.0); Bilirubin,Total 1.1 MG/DL (0.2-1.0); Osmolality,Calculated 282.7 MOS/KG (273-304); Risk Ratio 3.52; Total Protein 7.5 G/DL (6.4-8.3)
[2019-03-27] MEDS: VANCOMYCIN INJ 1,500 MG in SODIUM CHLORIDE 0.9% 500 ML IV SCH (08:43)
[2019-03-27] MEDS: ENOXAPARIN 40 MG/0.4 ML SYRINGE SUBCUT SCH (09:47)
[2019-03-27] MEDS: PANTOPRAZOLE 40 MG TABLET PO SCH (09:47)
[2019-03-27] MEDS: INSULIN REGULAR 100 UNIT/ML SUBCUT SCH ×4 (09:49→21:21)
[2019-03-28] MEDS: VANCOMYCIN INJ 1,500 MG in SODIUM CHLORIDE 0.9% 500 ML IV SCH ×2 (01:46→15:05)
[2019-03-28] MEDS: PIPERACILLIN/TAZOBACTAM 3,375 MG in SODIUM CHLORIDE 0.9% 100 ML IV SCH ×3 (06:01→19:04)
[2019-03-28 06:23] LABS: Basophils % 0.8 % (0.0-0.8); Eosinophils # 0.2 10*3/uL (0.0-0.87); Eosinophils % 5.4 % (0.00-10.9); Hematocrit 36.1 VOL% (42.0-52.0); Hemoglobin 11.8 GM/DL (14.0-18.0); Immature Granulocytes % 0.3 %; Immature Granulocytes Absolute 0.01 #; Lymphocytes # 1.5 10*3/uL (1.4-4.0); Lymphocytes % 41.8 % (21.2-54.2); Mean Corpuscular HGB Conc 32.7 GM/DL (32-36); Mean Corpuscular Volume 82.2 FL (87-102); Mean Platelet Volume 10.5 FL (9.6-12.0); Monocytes % 7.6 % (1.7-12.7); Neutrophils % 44.1 % (38.7-73.9); Platelet Count 204 T/CUMM (130-400); Red Blood Count 4.39 MC/CUMM (3.8-5.5); Red Cell Distribution Width 12.9 % (9.3-17.3); White Blood Count 3.5 T/CUMM (4-12)
[2019-03-28 06:39] LABS: Calcium 8.4 MG/DL (8.5-10.1); Osmolality,Calculated 285.5 MOS/KG (273-304)
[2019-03-28] MEDS: SODIUM CHLORIDE 0.9% 1,000 ML IV SCH ×2 (06:48→18:10)
[2019-03-28] MEDS: PANTOPRAZOLE 40 MG TABLET PO SCH (09:08)
[2019-03-28] MEDS: INSULIN REGULAR 100 UNIT/ML SUBCUT SCH ×4 (09:09→21:17)
[2019-03-28] MEDS: ENOXAPARIN 40 MG/0.4 ML SYRINGE SUBCUT SCH (09:10)
[2019-03-28] MEDS ORDERED: INSULIN GLARGINE 100 UNIT/ML SUBCUT SCH (15:00)
[2019-03-29] MEDS: SODIUM CHLORIDE 0.9% 1,000 ML IV SCH ×2 (00:40→12:06)
[2019-03-29] MEDS: VANCOMYCIN INJ 1,500 MG in SODIUM CHLORIDE 0.9% 500 ML IV SCH (02:35)
[2019-03-29] MEDS: PIPERACILLIN/TAZOBACTAM 3,375 MG in SODIUM CHLORIDE 0.9% 100 ML IV SCH ×2 (06:30→12:05)
[2019-03-29] MEDS ORDERED: GLIMEPIRIDE 2 MG TABLET PO SCH (08:00)
[2019-03-29] MEDS: ENOXAPARIN 40 MG/0.4 ML SYRINGE SUBCUT SCH (08:46)
[2019-03-29] MEDS: INSULIN REGULAR 100 UNIT/ML SUBCUT SCH ×2 (08:46→12:12)
[2019-03-29] MEDS: PANTOPRAZOLE 40 MG TABLET PO SCH (08:48)
[2019-03-29 12:48] VITALS: BP 192/88
== END 2019-03-29 12:48 | disposition home or self-care (01) | DRG 603 ==
LOC: N.ED 10:34 → N.EDINP 15:10 → N.2E 15:39
PROVIDERS: ADMIT Internal Medicine; ATTEND Internal Medicine

== ENCOUNTER 2019-05-03 01:02 | Inpatient (IN) ==
[2019-05-03] MEDS ORDERED: PIPERACILLIN/TAZOBACTAM 3,375 MG in SODIUM CHLORIDE 0.9% 100 ML IV STA (04:47)
[2019-05-03 05:22] LABS: Basophils % 0.8 % (0.0-0.8); Eosinophils # 0.2 10*3/uL (0.0-0.87); Eosinophils % 4.2 % (0.00-10.9); Hematocrit 34.3 VOL% (42.0-52.0); Hemoglobin 11.1 GM/DL (14.0-18.0); Immature Granulocytes % 0.2 %; Immature Granulocytes Absolute 0.01 #; Lymphocytes # 1.9 10*3/uL (1.4-4.0); Mean Corpuscular HGB Conc 32.4 GM/DL (32-36); Mean Corpuscular Volume 83.5 FL (87-102); Mean Platelet Volume 10.6 FL (9.6-12.0); Monocytes % 11.6 % (1.7-12.7); Neutrophils % 44.2 % (38.7-73.9); Platelet Count 175 T/CUMM (130-400); Red Blood Count 4.11 MC/CUMM (3.8-5.5); Red Cell Distribution Width 13.2 % (9.3-17.3); White Blood Count 4.7 T/CUMM (4-12)
[2019-05-03 05:30] LABS: INR 0.9; PT Patient Result 10.3 SECS
[2019-05-03 07:25] LABS: Alanine Aminotransferase 36 U/L (16-61); Albumin 3.4 G/DL (3.4-5.0); Alkaline Phosphatase 119 U/L (45-117); Aspartate Amino Transferase 31 U/L (0-37); Blood Urea Nitrogen 31 MG/DL (7-18); Calcium 8.5 MG/DL (8.5-10.1); Glucose 385 MG/DL (74-106); Osmolality,Calculated 297.7 MOS/KG (273-304); Total Protein 7.3 G/DL (6.4-8.3)
[2019-05-03] MEDS ORDERED: DEXTROSE 50% 25 GM/50 ML VIAL IV PRN (10:56)
[2019-05-03] MEDS ORDERED: ACETAMINOPHEN 325 MG TABLET PO PRN (10:56)
[2019-05-03] MEDS ORDERED: GLUCAGON 1 MG VIAL IM PRN ×2 (10:56→15:20)
[2019-05-03] MEDS ORDERED: BISACODYL 5 MG TABLET PO PRN (10:56)
[2019-05-03] MEDS ORDERED: ALBUTEROL/IPRATROPIUM 3 ML NEB RESP TX PRN (10:56)
[2019-05-03] MEDS ORDERED: ONDANSETRON 4 MG/2 ML VIAL IV PRN (10:56)
[2019-05-03] MEDS ORDERED: LACTATED RINGERS 1,000 ML IV SCH (11:00)
[2019-05-03] MEDS ORDERED: INSULIN LISPRO 100 UNIT/ML SUBCUT SCH (12:00)
[2019-05-03] MEDS: cefOXitin 2,000 MG in SYRINGE 1 EACH IV SCH ×2 (14:36→21:07)
[2019-05-03] MEDS ORDERED: hydrALAZINE 20 MG/1 ML VIAL IV PRN (15:17)
[2019-05-03] MEDS ORDERED: DEXTROSE 10% 250 ML BAG IV PRN (15:20)
[2019-05-03] MEDS ORDERED: MAGNESIUM SULF RIDER 2 GM in PREMIX 1 EACH IV PRN (15:25)
[2019-05-03] MEDS ORDERED: MAGNESIUM SULF RIDER 4 GM in PREMIX 1 EACH IV PRN (15:25)
[2019-05-03] MEDS ORDERED: POTASSIUM CHLORIDE RIDER 10 MEQ in PREMIX 1 EACH IV PRN (15:25)
[2019-05-03] MEDS: SODIUM CHLORIDE 0.9% 1,000 ML IV SCH (15:31)
[2019-05-03] MEDS: INSULIN REGULAR 100 UNIT/ML SUBCUT SCH ×2 (16:20→21:11)
[2019-05-03] MEDS ORDERED: INSULIN REGULAR 100 UNIT/ML SUBCUT SCH (16:30)
[2019-05-03 18:25] LABS: Apearance,Urine CLEAR (Clear); Bacteria,Urine Occasional /HPF (Few); Bilirubin,Urine Negative (Negative); Blood, Urine Negative (Negative); Glucose,Urine (UA) >=500 mg/dL (Negative); Ketones,Urine Negative (Negative); Nitrite,Urine Negative (Negative); Protein,Urine Negative; RBC,Urine <1 /HPF (0-4); Sperm,Urine Occasional /HPF (Negative); Urine Color Yellow (Yellow); Urine Specific Gravity 1.013 (1.001-1.035); Urine Urobilinogen < 2.0 EU/DL (0.2-1.0); WBC,Urine 1 /HPF (0-6)
[2019-05-03 20:42] LABS: Barbiturates Screen,Urine Negative (Negative); Benzodiazepines Screen,Urine Negative (Negative); Cannabinoid Screen,Urine Negative (Negative); Opiate Screen,Urine Positive (Negative); Phencyclidine Screen,Urine Negative (Negative)
[2019-05-03] MEDS ORDERED: CARVEDILOL 6.25 MG TABLET PO SCH (21:00)
[2019-05-03] MEDS: INSULIN GLARGINE 100 UNIT/ML SUBCUT SCH (21:10)
[2019-05-04] MEDS: SODIUM CHLORIDE 0.9% 1,000 ML IV SCH ×4 (01:40→23:07)
[2019-05-04] MEDS: cefOXitin 2,000 MG in SYRINGE 1 EACH IV SCH ×2 (02:19→08:18)
[2019-05-04 05:44] LABS: Basophils % 0.5 % (0.0-0.8); Eosinophils # 0.2 10*3/uL (0.0-0.87); Eosinophils % 3.5 % (0.00-10.9); Hematocrit 33.5 VOL% (42.0-52.0); Hemoglobin 11.2 GM/DL (14.0-18.0); Immature Granulocytes % 0.5 %; Immature Granulocytes Absolute 0.02 #; Lymphocytes # 1.2 10*3/uL (1.4-4.0); Lymphocytes % 28.2 % (21.2-54.2); Mean Corpuscular HGB Conc 33.4 GM/DL (32-36); Mean Corpuscular Volume 81.9 FL (87-102); Monocytes % 6.5 % (1.7-12.7); Neutrophils % 60.8 % (38.7-73.9); Platelet Count 199 T/CUMM (130-400); Red Blood Count 4.09 MC/CUMM (3.8-5.5); Red Cell Distribution Width 13.3 % (9.3-17.3); White Blood Count 4.3 T/CUMM (4-12)
[2019-05-04 06:28] LABS: Calcium 8.8 MG/DL (8.5-10.1); Osmolality,Calculated 293.4 MOS/KG (273-304)
[2019-05-04 06:32] LABS: Risk Ratio 2.96; VLDL CHOLESTEROL 11.2 MG/DL
[2019-05-04] MEDS: INSULIN REGULAR 100 UNIT/ML SUBCUT SCH ×4 (07:43→21:59)
[2019-05-04] MEDS ORDERED: GLIMEPIRIDE 2 MG TABLET PO SCH (08:00)
[2019-05-04] MEDS: PANTOPRAZOLE 40 MG TABLET PO SCH (08:20)
[2019-05-04] MEDS: PIPERACILLIN/TAZOBACTAM 3,375 MG in SODIUM CHLORIDE 0.9% 100 ML IV SCH ×2 (14:08→21:58)
[2019-05-04] MEDS: INSULIN GLARGINE 100 UNIT/ML SUBCUT SCH (21:59)
[2019-05-04] MEDS: CARVEDILOL 6.25 MG TABLET PO SCH (21:59)
[2019-05-05] MEDS: PIPERACILLIN/TAZOBACTAM 3,375 MG in SODIUM CHLORIDE 0.9% 100 ML IV SCH ×3 (06:07→22:25)
[2019-05-05] MEDS: INSULIN REGULAR 100 UNIT/ML SUBCUT SCH ×4 (07:48→21:18)
[2019-05-05] MEDS ORDERED: LIDOCAINE 1% 20 ML VIAL ONE (09:07)
[2019-05-05] MEDS: CARVEDILOL 6.25 MG TABLET PO SCH (13:28)
[2019-05-05] MEDS: PANTOPRAZOLE 40 MG TABLET PO SCH (13:34)
[2019-05-05] MEDS: SODIUM CHLORIDE 0.9% 1,000 ML IV SCH ×3 (18:22→23:32)
[2019-05-05] MEDS: INSULIN GLARGINE 100 UNIT/ML SUBCUT SCH (21:18)
[2019-05-06] MEDS: CARVEDILOL 6.25 MG TABLET PO SCH ×2 (03:53→08:37)
[2019-05-06] MEDS: HYDROmorphone 2 MG/1 ML VIAL IV PRN ×2 (04:39→09:40)
[2019-05-06] MEDS: PIPERACILLIN/TAZOBACTAM 3,375 MG in SODIUM CHLORIDE 0.9% 100 ML IV SCH ×2 (05:45→13:00)
[2019-05-06] MEDS: SODIUM CHLORIDE 0.9% 1,000 ML IV SCH (07:30)
[2019-05-06] MEDS: PANTOPRAZOLE 40 MG TABLET PO SCH (08:38)
[2019-05-06] MEDS: INSULIN REGULAR 100 UNIT/ML SUBCUT SCH ×2 (08:39→11:38)
[2019-05-06 12:20] VITALS: BP 125/65
== END 2019-05-06 13:10 | disposition home health service (06) | DRG 240 ==
LOC: N.ED 01:02 → N.EDINP 10:56 → N.3E 12:50
PROVIDERS: ADMIT Surgery; ATTEND Surgery

== ENCOUNTER 2019-05-07 12:47 | Observation (INO) ==
[2019-05-07] MEDS ORDERED: ONDANSETRON 4 MG/2 ML VIAL IV ONE (14:13)
[2019-05-07] MEDS ORDERED: MORPHINE 4 MG/1 ML VIAL IV ONE (14:13)
[2019-05-07] MEDS ORDERED: ASPIRIN 325 MG TABLET PO STA (14:13)
[2019-05-07 14:22] LABS: Basophils % 0.5 % (0.0-0.8); Eosinophils # 0.1 10*3/uL (0.0-0.87); Eosinophils % 2.5 % (0.00-10.9); Hematocrit 35.6 VOL% (42.0-52.0); Hemoglobin 11.5 GM/DL (14.0-18.0); Immature Granulocytes % 0.4 %; Immature Granulocytes Absolute 0.02 #; Lymphocytes % 17.1 % (21.2-54.2); Mean Corpuscular HGB Conc 32.3 GM/DL (32-36); Mean Corpuscular Volume 84.2 FL (87-102); Monocytes % 7.7 % (1.7-12.7); Neutrophils % 71.8 % (38.7-73.9); Platelet Count 196 T/CUMM (130-400); Red Blood Count 4.23 MC/CUMM (3.8-5.5); White Blood Count 5.7 T/CUMM (4-12)
[2019-05-07 14:29] LABS: PT Patient Result 10.4 SECS
[2019-05-07 14:41] LABS: Albumin 3.6 G/DL (3.4-5.0); Bilirubin,Total 0.8 MG/DL (0.2-1.0); Calcium 8.4 MG/DL (8.5-10.1); Osmolality,Calculated 297.1 MOS/KG (273-304); Total Protein 7.3 G/DL (6.4-8.3)
[2019-05-07] MEDS ORDERED: GLUCAGON 1 MG VIAL IM PRN (15:47)
[2019-05-07] MEDS ORDERED: ONDANSETRON 4 MG/2 ML VIAL IV PRN (15:47)
[2019-05-07] MEDS ORDERED: DOCUSATE SODIUM 100 MG CAPSULE PO PRN (15:47)
[2019-05-07] MEDS ORDERED: DEXTROSE 50% 25 GM/50 ML VIAL IV PRN (15:47)
[2019-05-07] MEDS ORDERED: ACETAMINOPHEN 325 MG TABLET PO PRN (15:47)
[2019-05-07] MEDS ORDERED: MORPHINE 4 MG/1 ML VIAL IV PRN (15:47)
[2019-05-07 16:29] LABS: Risk Ratio 2.75; Thyroid Stimulating Hormone 0.876 uIU/ml (0.358-3.74); VLDL CHOLESTEROL 16.8 MG/DL
[2019-05-07] MEDS: ENOXAPARIN 40 MG/0.4 ML SYRINGE SUBCUT SCH (18:31)
[2019-05-07] MEDS: AMOXICILLIN/CLAV 500 MG TABLET PO SCH (18:31)
[2019-05-07] MEDS: INSULIN LISPRO 100 UNIT/ML SUBCUT SCH ×2 (18:32→22:47)
[2019-05-07] MEDS: SODIUM CHLORIDE 0.9% 1,000 ML IV SCH (18:32)
[2019-05-07] MEDS: GABAPENTIN 100 MG CAPSULE PO SCH (21:19)
[2019-05-07] MEDS: CARVEDILOL 6.25 MG TABLET PO SCH (21:19)
[2019-05-07] MEDS: INSULIN GLARGINE 100 UNIT/ML SUBCUT SCH (21:20)
[2019-05-08] MEDS: AMOXICILLIN/CLAV 500 MG TABLET PO SCH ×3 (01:04→15:54)
[2019-05-08 04:50] LABS: Basophils % 0.3 % (0.0-0.8); Eosinophils # 0.1 10*3/uL (0.0-0.87); Eosinophils % 2.4 % (0.00-10.9); Hematocrit 31.1 VOL% (42.0-52.0); Hemoglobin 10.2 GM/DL (14.0-18.0); Immature Granulocytes % 0.2 %; Immature Granulocytes Absolute 0.01 #; Lymphocytes # 1.3 10*3/uL (1.4-4.0); Lymphocytes % 22.4 % (21.2-54.2); Mean Corpuscular HGB Conc 32.8 GM/DL (32-36); Mean Corpuscular Volume 83.2 FL (87-102); Monocytes % 8.6 % (1.7-12.7); Neutrophils % 66.1 % (38.7-73.9); Platelet Count 171 T/CUMM (130-400); Red Blood Count 3.74 MC/CUMM (3.8-5.5); White Blood Count 5.9 T/CUMM (4-12)
[2019-05-08 05:14] LABS: Calcium 8.1 MG/DL (8.5-10.1); Osmolality,Calculated 296.1 MOS/KG (273-304)
[2019-05-08] MEDS: NITROGLYCERIN SL 0.4 MG TABLET SL PRN ×2 (07:51→07:58)
[2019-05-08] MEDS ORDERED: FUROSEMIDE 20 MG/2 ML VIAL IV ONE (08:18)
[2019-05-08] MEDS: GABAPENTIN 100 MG CAPSULE PO SCH ×3 (08:47→21:41)
[2019-05-08] MEDS: PANTOPRAZOLE 40 MG TABLET PO SCH (08:47)
[2019-05-08] MEDS: GLIMEPIRIDE 4 MG TABLET PO SCH (08:47)
[2019-05-08] MEDS: CARVEDILOL 6.25 MG TABLET PO SCH ×2 (08:47→21:41)
[2019-05-08] MEDS: INSULIN LISPRO 100 UNIT/ML SUBCUT SCH ×3 (08:55→16:08)
[2019-05-08] MEDS: ASPIRIN 325 MG TABLET PO SCH (12:03)
[2019-05-08 13:10] LABS: Basophils % 0.5 % (0.0-0.8); Eosinophils # 0.1 10*3/uL (0.0-0.87); Eosinophils % 2.1 % (0.00-10.9); Hematocrit 31.9 VOL% (42.0-52.0); Hemoglobin 10.5 GM/DL (14.0-18.0); Immature Granulocytes % 0.2 %; Immature Granulocytes Absolute 0.01 #; Lymphocytes # 1.3 10*3/uL (1.4-4.0); Lymphocytes % 21.9 % (21.2-54.2); Mean Corpuscular HGB Conc 32.9 GM/DL (32-36); Mean Corpuscular Volume 83.5 FL (87-102); Mean Platelet Volume 10.5 FL (9.6-12.0); Monocytes % 9.8 % (1.7-12.7); Neutrophils % 65.5 % (38.7-73.9); Platelet Count 171 T/CUMM (130-400); Red Blood Count 3.82 MC/CUMM (3.8-5.5); White Blood Count 5.8 T/CUMM (4-12)
[2019-05-08] MEDS: SODIUM CHLORIDE 0.9% 1,000 ML IV SCH (14:58)
[2019-05-08] MEDS: FUROSEMIDE 40 MG/4 ML VIAL IV SCH (15:54)
[2019-05-08] MEDS: ENOXAPARIN 40 MG/0.4 ML SYRINGE SUBCUT SCH (16:08)
[2019-05-08] MEDS: ATORVASTATIN 20 MG TABLET PO SCH (21:41)
[2019-05-09] MEDS: SODIUM CHLORIDE 0.45% 1,000 ML IV SCH (00:01)
[2019-05-09] MEDS: AMOXICILLIN/CLAV 500 MG TABLET PO SCH ×3 (00:01→18:42)
[2019-05-09] MEDS: INSULIN LISPRO 100 UNIT/ML SUBCUT SCH ×5 (00:05→21:34)
[2019-05-09] MEDS: INSULIN GLARGINE 100 UNIT/ML SUBCUT SCH ×3 (00:06→21:36)
[2019-05-09] MEDS ORDERED: DIAZEPAM 5 MG TABLET PO ONE (06:00)
[2019-05-09] MEDS ORDERED: diphenhydrAMINE CAP 25 MG CAPSULE PO ONE (06:00)
[2019-05-09 06:22] LABS: Basophils % 0.6 % (0.0-0.8); Eosinophils # 0.2 10*3/uL (0.0-0.87); Eosinophils % 2.4 % (0.00-10.9); Hematocrit 33.3 VOL% (42.0-52.0); Hemoglobin 10.8 GM/DL (14.0-18.0); Immature Granulocytes % 0.3 %; Immature Granulocytes Absolute 0.02 #; Lymphocytes # 1.1 10*3/uL (1.4-4.0); Mean Corpuscular HGB Conc 32.4 GM/DL (32-36); Mean Corpuscular Volume 82.8 FL (87-102); Mean Platelet Volume 10.9 FL (9.6-12.0); Monocytes % 11.5 % (1.7-12.7); Neutrophils % 67.2 % (38.7-73.9); Platelet Count 184 T/CUMM (130-400); Red Blood Count 4.02 MC/CUMM (3.8-5.5); Red Cell Distribution Width 13.7 % (9.3-17.3); White Blood Count 6.3 T/CUMM (4-12)
[2019-05-09 06:53] LABS: Calcium 8.2 MG/DL (8.5-10.1); Osmolality,Calculated 289.5 MOS/KG (273-304)
[2019-05-09] MEDS: ASPIRIN 325 MG TABLET PO SCH (08:28)
[2019-05-09] MEDS: FUROSEMIDE 40 MG/4 ML VIAL IV SCH (08:29)
[2019-05-09] MEDS: CARVEDILOL 6.25 MG TABLET PO SCH ×2 (08:29→21:34)
[2019-05-09] MEDS: GLIMEPIRIDE 4 MG TABLET PO SCH (08:29)
[2019-05-09] MEDS: GABAPENTIN 100 MG CAPSULE PO SCH ×3 (08:29→21:34)
[2019-05-09] MEDS: PANTOPRAZOLE 40 MG TABLET PO SCH (08:29)
[2019-05-09] MEDS ORDERED: ACETYLCYSTEINE 600 MG CAPSULE PO SCH (13:00)
[2019-05-09] MEDS ORDERED: VERAPAMIL 5 MG/2 ML VIAL ONE (14:08)
[2019-05-09] MEDS ORDERED: HEPARIN/NACL 0.9% 2 UNITS/ML 1,000 ML IV ONE (14:08)
[2019-05-09] MEDS ORDERED: LIDOCAINE 1% 20 ML VIAL ONE (14:08)
[2019-05-09] MEDS ORDERED: NITROGLYCERIN DRIP 50 MG/250 ML BOTTLE IV ONE (14:08)
[2019-05-09] MEDS ORDERED: HYDROmorphone 2 MG/1 ML VIAL ONE (14:17)
[2019-05-09] MEDS ORDERED: MIDAZOLAM 2 MG/2 ML VIAL ONE (14:18)
[2019-05-09] MEDS ORDERED: ENOXAPARIN 30 MG/0.3 ML SYRINGE ONE (14:31)
[2019-05-09] MEDS ORDERED: BIVALIRUDIN 250 MG VIAL IV ONE (14:40)
[2019-05-09] MEDS ORDERED: TICAGRELOR 90 MG TABLET ONE (14:48)
[2019-05-09] MEDS ORDERED: ASPIRIN CHEW 81 MG TABLET PO SCH (14:50)
[2019-05-09] MEDS ORDERED: SODIUM CHLORIDE 0.9% 1,000 ML IV SCH (15:00)
[2019-05-09] MEDS: ENOXAPARIN 40 MG/0.4 ML SYRINGE SUBCUT SCH (18:09)
[2019-05-09] MEDS: TICAGRELOR 90 MG TABLET PO SCH (21:33)
[2019-05-09] MEDS: ATORVASTATIN 20 MG TABLET PO SCH (21:34)
[2019-05-10] MEDS: AMOXICILLIN/CLAV 500 MG TABLET PO SCH ×2 (00:55→09:19)
[2019-05-10 05:35] LABS: Basophils % 0.6 % (0.0-0.8); Eosinophils # 0.1 10*3/uL (0.0-0.87); Eosinophils % 2.5 % (0.00-10.9); Hematocrit 30.1 VOL% (42.0-52.0); Immature Granulocytes % 0.2 %; Immature Granulocytes Absolute 0.01 #; Lymphocytes % 18.5 % (21.2-54.2); Mean Corpuscular HGB Conc 33.2 GM/DL (32-36); Mean Corpuscular Volume 81.6 FL (87-102); Mean Platelet Volume 11.6 FL (9.6-12.0); Monocytes % 12.6 % (1.7-12.7); Neutrophils % 65.6 % (38.7-73.9); Platelet Count 186 T/CUMM (130-400); Red Blood Count 3.69 MC/CUMM (3.8-5.5); Red Cell Distribution Width 13.4 % (9.3-17.3); White Blood Count 5.1 T/CUMM (4-12)
[2019-05-10 05:59] LABS: Calcium 8.3 MG/DL (8.5-10.1); Osmolality,Calculated 295.3 MOS/KG (273-304)
[2019-05-10] MEDS: INSULIN LISPRO 100 UNIT/ML SUBCUT SCH ×2 (09:02→13:14)
[2019-05-10] MEDS: FUROSEMIDE 40 MG/4 ML VIAL IV SCH (09:02)
[2019-05-10] MEDS: TICAGRELOR 90 MG TABLET PO SCH (09:02)
[2019-05-10] MEDS: CARVEDILOL 6.25 MG TABLET PO SCH (09:03)
[2019-05-10] MEDS: GLIMEPIRIDE 4 MG TABLET PO SCH (09:03)
[2019-05-10] MEDS: PANTOPRAZOLE 40 MG TABLET PO SCH (09:03)
[2019-05-10] MEDS: GABAPENTIN 100 MG CAPSULE PO SCH (09:03)
[2019-05-10] MEDS: SODIUM CHLORIDE 0.45% 1,000 ML IV SCH (09:17)
[2019-05-10 11:52] VITALS: BP 163/74
== END 2019-05-10 12:03 | disposition home or self-care (01) ==
LOC: N.EDINP 12:47 → N.ED 12:47 → SUATTDRO 15:47 → N.TELEN 17:10
PROVIDERS: ADMIT Internal Medicine; ATTEND Family Medicine

== ENCOUNTER 2019-07-04 11:13 | Observation (INO) ==
[2019-07-04] MEDS ORDERED: SODIUM CHLORIDE 0.9% 1,000 ML IV STA (11:33)
[2019-07-04 12:03] LABS: Basophils % 0.7 % (0.0-0.8); Eosinophils # 0.3 10*3/uL (0.0-0.87); Eosinophils % 6.6 % (0.00-10.9); Hematocrit 34.1 VOL% (42.0-52.0); Hemoglobin 11.6 GM/DL (14.0-18.0); Immature Granulocytes % 0.2 %; Immature Granulocytes Absolute 0.01 #; Lymphocytes # 1.4 10*3/uL (1.4-4.0); Lymphocytes % 32.1 % (21.2-54.2); Mean Corpuscular Volume 78.8 FL (87-102); Mean Platelet Volume 10.8 FL (9.6-12.0); Monocytes % 9.1 % (1.7-12.7); Neutrophils % 51.3 % (38.7-73.9); Platelet Count 189 T/CUMM (130-400); Red Blood Count 4.33 MC/CUMM (3.8-5.5); Red Cell Distribution Width 12.9 % (9.3-17.3); White Blood Count 4.4 T/CUMM (4-12)
[2019-07-04 12:20] LABS: Calcium 8.7 MG/DL (8.5-10.1); Osmolality,Calculated 276.8 MOS/KG (273-304)
[2019-07-04] MEDS ORDERED: DEXTROSE 5% NACL 0.9% 1,000 ML IV SCH (13:00)
[2019-07-04] MEDS ORDERED: DEXTROSE 50% 25 GM/50 ML VIAL IV PRN (14:16)
[2019-07-04] MEDS ORDERED: ONDANSETRON 4 MG/2 ML VIAL IV PRN (14:16)
[2019-07-04] MEDS ORDERED: GLUCAGON 1 MG VIAL IM PRN ×2 (14:16→14:24)
[2019-07-04] MEDS ORDERED: DEXTROSE 10% 250 ML BAG IV PRN (14:24)
[2019-07-04] MEDS ORDERED: CYCLOBENZAPRINE 10 MG TABLET PO PRN ×2 (15:35→16:03)
[2019-07-04 16:16] LABS: Risk Ratio 2.95; Thyroid Stimulating Hormone 2.03 uIU/ml (0.358-3.74); VLDL CHOLESTEROL 17.2 MG/DL
[2019-07-04 17:56] LABS: Apearance,Urine CLEAR (Clear); Bacteria,Urine Occasional /HPF (Few); Bilirubin,Urine Negative (Negative); Blood, Urine Negative (Negative); Glucose,Urine (UA) 50 mg/dL (Negative); Ketones,Urine Negative (Negative); Mucus,Urine Occasional /LPF (Occasional); Nitrite,Urine Negative (Negative); Protein,Urine Negative; RBC,Urine 1 /HPF (0-4); Sperm,Urine Occasional /HPF (Negative); Urine Color Yellow (Yellow); Urine Urobilinogen < 2.0 EU/DL (0.2-1.0); WBC,Urine <1 /HPF (0-6)
[2019-07-04 18:01] LABS: Barbiturates Screen,Urine Negative (Negative); Benzodiazepines Screen,Urine Negative (Negative); Cannabinoid Screen,Urine Negative (Negative); Opiate Screen,Urine Negative (Negative); Phencyclidine Screen,Urine Negative (Negative)
[2019-07-04] MEDS: INSULIN REGULAR 100 UNIT/ML SUBCUT SCH ×2 (19:53→22:03)
[2019-07-04] MEDS ORDERED: ATORVASTATIN 20 MG TABLET PO SCH (21:00)
[2019-07-04] MEDS ORDERED: carvediloL 6.25 MG TABLET PO SCH (21:00)
[2019-07-04] MEDS ORDERED: TICAGRELOR 90 MG TABLET PO SCH (21:00)
[2019-07-04 22:00] VITALS: BP 183/83
[2019-07-05] MEDS ORDERED: CLOPIDOGREL 75 MG TABLET PO SCH (09:00)
[2019-07-05] MEDS ORDERED: PANTOPRAZOLE 40 MG TABLET PO SCH (09:00)
[2019-07-05] MEDS ORDERED: ASPIRIN CHEW 81 MG TABLET PO SCH (09:00)
[2019-07-05] MEDS ORDERED: CITALOPRAM 20 MG TABLET PO SCH (09:00)
[2019-07-05] MEDS ORDERED: MULTIVITAMIN (CENTRUM) TABLET PO SCH (09:00)
== END 2019-07-04 21:35 | disposition left against medical advice (07) ==
LOC: EDUNIT# → EDBD → N.ED 11:13 → N.EDINP 11:13 → N.2W 13:16
PROVIDERS: ADMIT Hospitalist; ATTEND Hospitalist

== ENCOUNTER 2019-12-23 18:14 | Observation (INO) ==
[2019-12-23 18:42] LABS: Basophils % 0.7 % (0.0-0.8); Eosinophils # 0.2 10*3/uL (0.0-0.87); Eosinophils % 4.4 % (0.00-10.9); Hematocrit 34.5 VOL% (42.0-52.0); Hemoglobin 11.2 GM/DL (14.0-18.0); Immature Granulocytes % 0.2 %; Immature Granulocytes Absolute 0.01 #; Lymphocytes # 1.4 10*3/uL (1.4-4.0); Mean Corpuscular HGB Conc 32.5 GM/DL (32-36); Mean Corpuscular Volume 82.9 FL (87-102); Mean Platelet Volume 10.1 FL (9.6-12.0); Monocytes % 5.3 % (1.7-12.7); Neutrophils % 58.4 % (38.7-73.9); Platelet Count 188 T/CUMM (130-400); Red Blood Count 4.16 MC/CUMM (3.8-5.5); Red Cell Distribution Width 13.5 % (9.3-17.3); White Blood Count 4.4 T/CUMM (4-12)
[2019-12-23 18:58] LABS: Albumin 3.5 G/DL (3.4-5.0); Bilirubin,Total 0.7 MG/DL (0.2-1.0); Calcium 8.4 MG/DL (8.5-10.1); Total Protein 7.3 G/DL (6.4-8.3)
[2019-12-23 19:22] LABS: PT Patient Result 11.3 SECS (9.6-12.2); Partial Thromboplastin Time 27.8 SECS (20.8-36.0)
[2019-12-24] MEDS ORDERED: carvediloL 3.125 MG TABLET PO STA (00:17)
[2019-12-24] MEDS ORDERED: GLUCAGON 1 MG VIAL IM PRN (03:58)
[2019-12-24] MEDS ORDERED: ACETAMINOPHEN 325 MG TABLET PO PRN (03:58)
[2019-12-24] MEDS ORDERED: hydrALAZINE 20 MG/1 ML VIAL IV PRN (03:58)
[2019-12-24] MEDS ORDERED: DEXTROSE 50% 25 GM/50 ML SYRINGE IV PRN (03:58)
[2019-12-24] MEDS ORDERED: ONDANSETRON 4 MG/2 ML VIAL IV PRN (03:58)
[2019-12-24] MEDS ORDERED: DOCUSATE SODIUM 100 MG CAPSULE PO PRN (03:58)
[2019-12-24] MEDS ORDERED: ENOXAPARIN 120 MG/0.8 ML SYRINGE SUBCUT SCH ×2 (04:30→16:30)
[2019-12-24] MEDS: INSULIN REGULAR 100 UNIT/ML SUBCUT SCH ×4 (04:35→16:12)
[2019-12-24 05:18] LABS: Basophils % 0.9 % (0.0-0.8); Eosinophils # 0.3 10*3/uL (0.0-0.87); Eosinophils % 6.2 % (0.00-10.9); Hematocrit 36.8 VOL% (42.0-52.0); Hemoglobin 11.9 GM/DL (14.0-18.0); Lymphocytes # 1.9 10*3/uL (1.4-4.0); Lymphocytes % 43.7 % (21.2-54.2); Mean Corpuscular HGB Conc 32.3 GM/DL (32-36); Mean Corpuscular Volume 83.4 FL (87-102); Mean Platelet Volume 10.7 FL (9.6-12.0); Monocytes % 6.6 % (1.7-12.7); Neutrophils % 42.6 % (38.7-73.9); Platelet Count 205 T/CUMM (130-400); Red Blood Count 4.41 MC/CUMM (3.8-5.5); Red Cell Distribution Width 13.5 % (9.3-17.3); White Blood Count 4.4 T/CUMM (4-12)
[2019-12-24 06:04] LABS: Calcium 8.5 MG/DL (8.5-10.1); Osmolality,Calculated 283.8 MOS/KG (273-304); Risk Ratio 3.17; Thyroid Stimulating Hormone 0.911 uIU/ml (0.358-3.74)
[2019-12-24] MEDS ORDERED: CLOPIDOGREL 300 MG TABLET PO ONE (08:08)
[2019-12-24] MEDS: carvediloL 6.25 MG TABLET PO SCH ×2 (08:22→16:12)
[2019-12-24] MEDS ORDERED: TICAGRELOR 90 MG TABLET PO SCH (09:00)
[2019-12-24] MEDS ORDERED: ASPIRIN CHEW 81 MG TABLET PO SCH (09:00)
[2019-12-24] MEDS ORDERED: CLOPIDOGREL 75 MG TABLET PO SCH (09:00)
[2019-12-24] MEDS ORDERED: ENOXAPARIN 40 MG/0.4 ML SYRINGE SUBCUT SCH (09:30)
[2019-12-24 16:10] VITALS: BP 181/78
[2019-12-24] MEDS ORDERED: ATORVASTATIN 20 MG TABLET PO SCH (21:00)
[2019-12-25] MEDS ORDERED: CLOPIDOGREL 75 MG TABLET PO SCH (09:00)
== END 2019-12-24 16:43 | disposition home or self-care (01) ==
LOC: N.EDINP 18:14 → N.ED 18:14 → SUATTDRO 12-24 02:32 → N.EDINP 12-24 03:24 → N.TELEN 12-24 03:56
PROVIDERS: ADMIT Internal Medicine; ATTEND Internal Medicine Cardiovascular Disease

== ENCOUNTER 2020-02-26 08:48 | Observation (INO) ==
[2020-02-26 10:08] LABS: Troponin I < 0.015 NG/ML (0.00-0.045)
[2020-02-26 10:19] LABS: Basophils % 0.5 % (0.0-0.8); Eosinophils # 0.3 10*3/uL (0.0-0.87); Eosinophils % 5.4 % (0.00-10.9); Hematocrit 34.4 VOL% (42.0-52.0); Hemoglobin 11.6 GM/DL (14.0-18.0); Immature Granulocytes % 0.2 %; Immature Granulocytes Absolute 0.01 #; Lymphocytes % 16.2 % (21.2-54.2); Mean Corpuscular HGB Conc 33.7 GM/DL (32-36); Mean Corpuscular Volume 78.4 FL (87-102); Mean Platelet Volume 11.2 FL (9.6-12.0); Monocytes % 7.6 % (1.7-12.7); Neutrophils % 70.1 % (38.7-73.9); Platelet Count 193 T/CUMM (130-400); Red Blood Count 4.39 MC/CUMM (3.8-5.5); Red Cell Distribution Width 13.8 % (9.3-17.3); White Blood Count 6.4 T/CUMM (4-12)
[2020-02-26 10:22] LABS: Albumin 3.6 G/DL (3.4-5.0); Bilirubin,Total 0.6 MG/DL (0.2-1.0); Calcium 8.5 MG/DL (8.5-10.1); Osmolality,Calculated 283.4 MOS/KG (273-304); Total Protein 7.7 G/DL (6.4-8.3)
[2020-02-26 10:28] LABS: PT Patient Result 10.9 SECS (9.8-11.9); Partial Thromboplastin Time 30.2 SECS (23.9-33.8)
[2020-02-26] MEDS ORDERED: ALUM/MAG/SIMETH/LIDO VISC 1:1 30 ML BOTTLE PO PRN (12:58)
[2020-02-26] MEDS ORDERED: DEXTROSE 10% 250 ML BAG IV PRN (12:58)
[2020-02-26] MEDS ORDERED: GLUCAGON 1 MG VIAL IM PRN (12:58)
[2020-02-26] MEDS ORDERED: NITROGLYCERIN SL 0.4 MG TABLET SL PRN (12:58)
[2020-02-26] MEDS ORDERED: LACTULOSE 20 GM/30 ML UDCUP PO PRN (12:58)
[2020-02-26] MEDS ORDERED: ONDANSETRON 4 MG/2 ML VIAL IV PRN (12:58)
[2020-02-26] MEDS ORDERED: ASPIRIN CHEW 81 MG TABLET PO STA (13:01)
[2020-02-26] MEDS ORDERED: MAGNESIUM SULF RIDER 2 GM in PREMIX 1 EACH IV PRN (13:10)
[2020-02-26] MEDS ORDERED: MAGNESIUM SULF RIDER 4 GM in PREMIX 1 EACH IV PRN (13:10)
[2020-02-26] MEDS ORDERED: hydrALAZINE 20 MG/1 ML VIAL IV PRN (13:12)
[2020-02-26] MEDS ORDERED: ENOXAPARIN 40 MG/0.4 ML SYRINGE SUBCUT SCH (16:00)
[2020-02-26] MEDS: LOSARTAN 50 MG TABLET PO SCH (17:02)
[2020-02-26] MEDS: SODIUM CHLORIDE 0.9% 1,000 ML IV SCH (17:02)
[2020-02-26] MEDS: carvediloL 6.25 MG TABLET PO SCH ×2 (17:02→17:03)
[2020-02-26] MEDS: CLOPIDOGREL 75 MG TABLET PO SCH (17:03)
[2020-02-26] MEDS: INSULIN REGULAR 100 UNIT/ML SUBCUT SCH ×2 (17:03→21:40)
[2020-02-26] MEDS: PANTOPRAZOLE 40 MG TABLET PO SCH (17:03)
[2020-02-26] MEDS ORDERED: ATORVASTATIN 20 MG TABLET PO SCH (21:00)
[2020-02-26] MEDS: GABAPENTIN 300 MG CAPSULE PO SCH (21:39)
[2020-02-26] MEDS: guaiFENesin 200 MG/10 ML UDCUP PO PRN (21:50)
[2020-02-27 05:13] LABS: Basophils % 0.8 % (0.0-0.8); Eosinophils # 0.3 10*3/uL (0.0-0.87); Hematocrit 32.8 VOL% (42.0-52.0); Immature Granulocytes % 0.2 %; Immature Granulocytes Absolute 0.01 #; Lymphocytes # 1.5 10*3/uL (1.4-4.0); Mean Corpuscular HGB Conc 33.5 GM/DL (32-36); Mean Corpuscular Volume 78.5 FL (87-102); Mean Platelet Volume 10.2 FL (9.6-12.0); Monocytes % 9.4 % (1.7-12.7); Neutrophils % 55.6 % (38.7-73.9); Platelet Count 184 T/CUMM (130-400); Red Blood Count 4.18 MC/CUMM (3.8-5.5); Red Cell Distribution Width 13.9 % (9.3-17.3); White Blood Count 5.3 T/CUMM (4-12)
[2020-02-27 05:35] LABS: Calcium 8.2 MG/DL (8.5-10.1); Risk Ratio 3.25; VLDL CHOLESTEROL 14.6 MG/DL
[2020-02-27 05:36] LABS: % Iron Saturation 21.7 % (18-50); Ferritin 161.7 ng/ml (26-388)
[2020-02-27] MEDS ORDERED: glyBURIDE 5 MG TABLET PO SCH (07:30)
[2020-02-27] MEDS ORDERED: INSULIN GLARGINE 100 UNIT/ML SUBCUT SCH (07:30)
[2020-02-27] MEDS: PANTOPRAZOLE 40 MG TABLET PO SCH (08:20)
[2020-02-27] MEDS: CLOPIDOGREL 75 MG TABLET PO SCH (08:20)
[2020-02-27] MEDS: guaiFENesin 200 MG/10 ML UDCUP PO PRN (08:20)
[2020-02-27] MEDS: carvediloL 6.25 MG TABLET PO SCH (08:20)
[2020-02-27] MEDS: LOSARTAN 50 MG TABLET PO SCH (08:20)
[2020-02-27] MEDS: SODIUM CHLORIDE 0.9% 1,000 ML IV SCH (08:23)
[2020-02-27] MEDS: INSULIN REGULAR 100 UNIT/ML SUBCUT SCH (08:26)
[2020-02-27] MEDS ORDERED: ESCITALOPRAM 10 MG TABLET PO SCH (09:00)
[2020-02-27] MEDS ORDERED: MULTIVITAMIN (CENTRUM) TABLET PO SCH (09:00)
[2020-02-27] MEDS ORDERED: ASPIRIN EC 325 MG TABLET PO SCH (09:00)
[2020-02-27 12:24] VITALS: BP 165/86
[2020-02-27] MEDS: GABAPENTIN 300 MG CAPSULE PO SCH (14:02)
== END 2020-02-27 14:37 | disposition home or self-care (01) ==
LOC: N.EDINP 08:48 → N.ED 08:48 → SUATTDRO 12:58 → N.TELEN 15:38
PROVIDERS: ADMIT Hospitalist; ATTEND Internal Medicine

== ENCOUNTER 2020-12-22 20:07 | Inpatient (IN) ==
[2020-12-22 20:36] LABS: Basophils % 0.3 % (0.0-0.8); Eosinophils # 0.5 10*3/uL (0.0-0.87); Eosinophils % 4.7 % (0.00-10.9); Hematocrit 31.5 VOL% (42.0-52.0); Hemoglobin 10.3 GM/DL (14.0-18.0); Immature Granulocytes % 0.4 %; Immature Granulocytes Absolute 0.04 #; Lymphocytes # 1.2 10*3/uL (1.4-4.0); Lymphocytes % 12.3 % (21.2-54.2); Mean Corpuscular HGB Conc 32.7 GM/DL (32-36); Mean Platelet Volume 9.9 FL (9.6-12.0); Monocytes % 5.9 % (1.7-12.7); Neutrophils % 76.4 % (38.7-73.9); Platelet Count 184 T/CUMM (130-400); Red Blood Count 3.89 MC/CUMM (3.8-5.5); Red Cell Distribution Width 14.5 % (9.3-17.3); White Blood Count 9.7 T/CUMM (4-12)
[2020-12-22 21:00] LABS: Albumin 3.8 G/DL (3.4-5.0); Bilirubin,Total 0.6 MG/DL (0.2-1.0); Calcium 8.2 MG/DL (8.5-10.1); Osmolality,Calculated 288.5 MOS/KG (273-304); Potassium 4.4 MMOL/L (3.5-5.1); Total Protein 8.1 G/DL (6.4-8.2)
[2020-12-22 21:19] LABS: PT Patient Result 11.1 SECS (9.8-11.9)
[2020-12-22] MEDS ORDERED: LEVOFLOXACIN INJ 500 MG in PREMIX 1 EACH IV STA (21:20)
[2020-12-22 23:16] LABS: ABG HCO3 26.9 MMOL/L (20-26); ABG Oxygen Saturation 85.5 % (95-100); ABG PCO2 41.8 MM HG (35-48); ABG PH 7.428 (7.35-7.45); ABG PO2 51.5 MM HG (80-95)
[2020-12-23 01:16] LABS: Barbiturates Screen,Urine Negative (Negative); Benzodiazepines Screen,Urine Negative (Negative); Cannabinoid Screen,Urine Negative (Negative); Opiate Screen,Urine Positive (Negative); Phencyclidine Screen,Urine Negative (Negative)
[2020-12-23] MEDS ORDERED: DEXTROSE 50% 25 GM/50 ML VIAL IV PRN (01:21)
[2020-12-23] MEDS ORDERED: GLUCAGON 1 MG VIAL IM PRN (01:21)
[2020-12-23 01:23] LABS: Bilirubin,Urine Negative (Negative); Blood, Urine Negative (Negative); Glucose,Urine (UA) Negative (Negative); Hyaline Casts,Urine 1 /LPF (0-3); Ketones,Urine Negative (Negative); Nitrite,Urine Negative (Negative); Protein,Urine Negative; RBC,Urine 2 /HPF (0-4); Squamous Epithelial Cell,Urine Occasional /HPF (0-10); Urine Appearance CLEAR (Clear); Urine Color Yellow (Yellow); Urine Specific Gravity 1.013 (1.001-1.035); Urine Urobilinogen < 2.0 EU/DL (0.2-1.0); WBC,Urine 1 /HPF (0-6)
[2020-12-23] MEDS ORDERED: ONDANSETRON 4 MG/2 ML VIAL IV PRN (01:35)
[2020-12-23] MEDS ORDERED: SODIUM CHLORIDE 0.9% 1,000 ML IV SCH (02:00)
[2020-12-23] MEDS: cefTRIAXone 1,000 MG in SYRINGE 1 EACH IV SCH (03:21)
[2020-12-23] MEDS: DOXYCYCLINE HYCLATE INJ 100 MG in SODIUM CHLORIDE 0.9% 100 ML IV SCH ×2 (03:21→21:55)
[2020-12-23] MEDS ORDERED: hydrALAZINE 20 MG/1 ML VIAL IV PRN (04:49)
[2020-12-23 05:27] LABS: Basophils % 0.3 % (0.0-0.8); Eosinophils # 0.2 10*3/uL (0.0-0.87); Hematocrit 32.1 VOL% (42.0-52.0); Hemoglobin 10.4 GM/DL (14.0-18.0); Immature Granulocytes % 0.7 %; Immature Granulocytes Absolute 0.07 #; Lymphocytes # 1.5 10*3/uL (1.4-4.0); Mean Corpuscular HGB Conc 32.4 GM/DL (32-36); Mean Corpuscular Volume 80.9 FL (87-102); Mean Platelet Volume 10.6 FL (9.6-12.0); Monocytes % 6.1 % (1.7-12.7); Neutrophils % 76.9 % (38.7-73.9); Platelet Count 191 T/CUMM (130-400); Red Blood Count 3.97 MC/CUMM (3.8-5.5); Red Cell Distribution Width 14.4 % (9.3-17.3); White Blood Count 10.5 T/CUMM (4-12)
[2020-12-23 05:52] LABS: % Iron Saturation 4.5 % (18-50); Ferritin 142.6 ng/ml (26-388)
[2020-12-23 05:58] LABS: Albumin 3.5 G/DL (3.4-5.0); Bilirubin,Total 0.8 MG/DL (0.2-1.0); Calcium 8.3 MG/DL (8.5-10.1); Osmolality,Calculated 279.7 MOS/KG (273-304); Potassium 4.2 MMOL/L (3.5-5.1); Risk Ratio 2.13; Thyroid Stimulating Hormone 0.308 uIU/ml (0.358-3.74); Total Protein 8.1 G/DL (6.4-8.2)
[2020-12-23] MEDS: ASPIRIN CHEW 81 MG TABLET PO SCH (09:46)
[2020-12-23] MEDS: CLOPIDOGREL 75 MG TABLET PO SCH (09:46)
[2020-12-23] MEDS: carvediloL 6.25 MG TABLET PO SCH ×2 (09:46→17:21)
[2020-12-23] MEDS: ATORVASTATIN 20 MG TABLET PO SCH (21:59)
[2020-12-24 05:25] LABS: Basophils % 0.2 % (0.0-0.8); Eosinophils # 0.4 10*3/uL (0.0-0.87); Eosinophils % 5.2 % (0.00-10.9); Hematocrit 28.8 VOL% (42.0-52.0); Hemoglobin 9.4 GM/DL (14.0-18.0); Immature Granulocytes % 0.4 %; Immature Granulocytes Absolute 0.03 #; Lymphocytes # 1.7 10*3/uL (1.4-4.0); Lymphocytes % 20.3 % (21.2-54.2); Mean Corpuscular HGB Conc 32.6 GM/DL (32-36); Mean Corpuscular Volume 80.7 FL (87-102); Mean Platelet Volume 10.1 FL (9.6-12.0); Monocytes % 8.6 % (1.7-12.7); Neutrophils % 65.3 % (38.7-73.9); Platelet Count 188 T/CUMM (130-400); Red Blood Count 3.57 MC/CUMM (3.8-5.5); Red Cell Distribution Width 14.4 % (9.3-17.3); White Blood Count 8.5 T/CUMM (4-12)
[2020-12-24 06:00] LABS: Calcium 8.2 MG/DL (8.5-10.1); Potassium 4.5 MMOL/L (3.5-5.1)
[2020-12-24] MEDS: ASPIRIN CHEW 81 MG TABLET PO SCH (08:58)
[2020-12-24] MEDS: CLOPIDOGREL 75 MG TABLET PO SCH (08:59)
[2020-12-24] MEDS: carvediloL 6.25 MG TABLET PO SCH ×2 (08:59→17:13)
[2020-12-24] MEDS: cefTRIAXone 1,000 MG in SYRINGE 1 EACH IV SCH (09:22)
[2020-12-24] MEDS: DOXYCYCLINE HYCLATE INJ 100 MG in SODIUM CHLORIDE 0.9% 100 ML IV SCH ×2 (09:29→21:13)
[2020-12-24] MEDS: ESCITALOPRAM 10 MG TABLET PO SCH (11:47)
[2020-12-24] MEDS: FUROSEMIDE 40 MG TABLET PO SCH ×2 (11:47→17:13)
[2020-12-24] MEDS: GABAPENTIN 300 MG CAPSULE PO SCH ×2 (11:50→21:14)
[2020-12-24] MEDS: glyBURIDE 5 MG TABLET PO SCH (17:12)
[2020-12-24] MEDS: ATORVASTATIN 20 MG TABLET PO SCH (21:14)
[2020-12-25 05:54] LABS: Calcium 8.3 MG/DL (8.5-10.1); Osmolality,Calculated 281.8 MOS/KG (273-304); Potassium 4.2 MMOL/L (3.5-5.1)
[2020-12-25] MEDS ORDERED: INSULIN GLARGINE 100 UNIT/ML SUBCUT SCH (07:30)
[2020-12-25 07:54] VITALS: BP 133/63
[2020-12-25] MEDS: glyBURIDE 5 MG TABLET PO SCH (08:20)
[2020-12-25] MEDS: FUROSEMIDE 40 MG TABLET PO SCH (08:20)
[2020-12-25] MEDS: GABAPENTIN 300 MG CAPSULE PO SCH (08:21)
[2020-12-25] MEDS: ESCITALOPRAM 10 MG TABLET PO SCH (08:21)
[2020-12-25] MEDS: CLOPIDOGREL 75 MG TABLET PO SCH (08:21)
[2020-12-25] MEDS: ASPIRIN CHEW 81 MG TABLET PO SCH (08:21)
[2020-12-25] MEDS: carvediloL 6.25 MG TABLET PO SCH (08:21)
[2020-12-25] MEDS ORDERED: DOXYCYCLINE HYCLATE 100 MG CAPSULE PO SCH (09:00)
[2020-12-25] MEDS ORDERED: CEFDINIR 300 MG CAPSULE PO SCH (09:00)
== END 2020-12-25 10:13 | disposition home or self-care (01) | DRG 193 ==
LOC: N.ED 20:07 → N.EDINP 12-23 02:04 → N.5E 12-23 02:57
PROVIDERS: ADMIT Internal Medicine; ATTEND Internal Medicine

== ENCOUNTER 2021-02-07 02:18 | Observation (INO) ==
[2021-02-07] MEDS ORDERED: FUROSEMIDE 100 MG/10 ML VIAL IV STA (02:31)
[2021-02-07] MEDS ORDERED: FUROSEMIDE 40 MG/4 ML VIAL ONE (02:40)
[2021-02-07 02:46] LABS: Basophils % 0.6 % (0.0-0.8); Eosinophils # 0.5 10*3/uL (0.0-0.87); Eosinophils % 7.2 % (0.00-10.9); Hematocrit 32.2 VOL% (42.0-52.0); Hemoglobin 10.4 GM/DL (14.0-18.0); Immature Granulocytes % 0.3 %; Immature Granulocytes Absolute 0.02 #; Lymphocytes # 1.7 10*3/uL (1.4-4.0); Lymphocytes % 24.7 % (21.2-54.2); Mean Corpuscular HGB Conc 32.3 GM/DL (32-36); Mean Corpuscular Volume 80.1 FL (87-102); Mean Platelet Volume 10.6 FL (9.6-12.0); Monocytes % 7.5 % (1.7-12.7); Neutrophils % 59.7 % (38.7-73.9); Platelet Count 219 T/CUMM (130-400); Red Blood Count 4.02 MC/CUMM (3.8-5.5); White Blood Count 6.8 T/CUMM (4-12)
[2021-02-07 03:06] LABS: Albumin 3.9 G/DL (3.4-5.0); Bilirubin,Total 0.5 MG/DL (0.2-1.0); Calcium 8.2 MG/DL (8.5-10.1); Osmolality,Calculated 285.1 MOS/KG (273-304); Potassium 4.3 MMOL/L (3.5-5.1); Total Protein 8.4 G/DL (6.4-8.2)
[2021-02-07] MEDS ORDERED: DEXTROSE 50% 25 GM/50 ML VIAL IV PRN (04:19)
[2021-02-07] MEDS ORDERED: GLUCAGON 1 MG VIAL IM PRN (04:19)
[2021-02-07] MEDS ORDERED: diphenhydrAMINE CAP 25 MG CAPSULE PO PRN (04:32)
[2021-02-07] MEDS ORDERED: NICOTINE 21 MG/24 HR PATCH TRANSDERM PRN (04:32)
[2021-02-07] MEDS ORDERED: ONDANSETRON 4 MG/2 ML VIAL IV PRN (04:32)
[2021-02-07] MEDS ORDERED: hydrALAZINE 20 MG/1 ML VIAL IV PRN (04:32)
[2021-02-07] MEDS ORDERED: ACETAMINOPHEN 325 MG TABLET PO PRN (04:32)
[2021-02-07] MEDS ORDERED: guaiFENesin/DM ER 600-30 MG TABLET PO PRN (04:32)
[2021-02-07] MEDS ORDERED: MORPHINE 4 MG/1 ML VIAL IV PRN (04:32)
[2021-02-07 06:53] LABS: Risk Ratio 2.94
[2021-02-07] MEDS: ALBUTEROL/IPRATROPIUM 3 ML NEB RESP TX SCH ×3 (07:56→20:21)
[2021-02-07] MEDS ORDERED: FUROSEMIDE 20 MG/2 ML VIAL IV SCH (08:00)
[2021-02-07] MEDS: INSULIN REGULAR 100 UNIT/ML SUBCUT SCH ×4 (09:01→20:44)
[2021-02-07] MEDS ORDERED: ENOXAPARIN 150 MG/ML SYRINGE SUBCUT ONE (11:47)
[2021-02-07] MEDS ORDERED: cefTRIAXone 1,000 MG in SODIUM CHLORIDE 0.9% 100 ML IV SCH (13:30)
[2021-02-07] MEDS: carvediloL 6.25 MG TABLET PO SCH ×2 (14:15→20:43)
[2021-02-07] MEDS: ASPIRIN CHEW 81 MG TABLET PO SCH (14:15)
[2021-02-07] MEDS: GABAPENTIN 300 MG CAPSULE PO SCH ×2 (14:15→20:43)
[2021-02-07] MEDS: CLOPIDOGREL 75 MG TABLET PO SCH (14:15)
[2021-02-07] MEDS: ESCITALOPRAM 10 MG TABLET PO SCH (14:15)
[2021-02-07] MEDS: FUROSEMIDE 40 MG TABLET PO SCH ×2 (14:15→17:27)
[2021-02-07] MEDS: DOXYCYCLINE HYCLATE INJ 100 MG in SODIUM CHLORIDE 0.9% 100 ML IV SCH (15:40)
[2021-02-07] MEDS: glyBURIDE 5 MG TABLET PO SCH (20:43)
[2021-02-07] MEDS ORDERED: ATORVASTATIN 20 MG TABLET PO SCH (21:00)
[2021-02-08] MEDS: ALBUTEROL/IPRATROPIUM 3 ML NEB RESP TX SCH ×2 (01:10→07:03)
[2021-02-08] MEDS: DOXYCYCLINE HYCLATE INJ 100 MG in SODIUM CHLORIDE 0.9% 100 ML IV SCH (02:16)
[2021-02-08 05:32] LABS: Basophils % 0.6 % (0.0-0.8); Eosinophils # 0.5 10*3/uL (0.0-0.87); Eosinophils % 9.2 % (0.00-10.9); Hematocrit 30.8 VOL% (42.0-52.0); Hemoglobin 10.2 GM/DL (14.0-18.0); Immature Granulocytes % 0.2 %; Immature Granulocytes Absolute 0.01 #; Lymphocytes % 40.3 % (21.2-54.2); Mean Corpuscular HGB Conc 33.1 GM/DL (32-36); Mean Platelet Volume 10.7 FL (9.6-12.0); Neutrophils % 41.7 % (38.7-73.9); Platelet Count 206 T/CUMM (130-400); Red Blood Count 3.85 MC/CUMM (3.8-5.5); Red Cell Distribution Width 15.1 % (9.3-17.3)
[2021-02-08 05:58] LABS: Osmolality,Calculated 288.3 MOS/KG (273-304); Potassium 3.6 MMOL/L (3.5-5.1)
[2021-02-08] MEDS ORDERED: INSULIN GLARGINE 100 UNIT/ML SUBCUT SCH (07:30)
[2021-02-08] MEDS: INSULIN REGULAR 100 UNIT/ML SUBCUT SCH ×2 (09:04→12:45)
[2021-02-08] MEDS: glyBURIDE 5 MG TABLET PO SCH (10:21)
[2021-02-08] MEDS: ASPIRIN CHEW 81 MG TABLET PO SCH (10:21)
[2021-02-08] MEDS: FUROSEMIDE 40 MG TABLET PO SCH (10:22)
[2021-02-08] MEDS: carvediloL 6.25 MG TABLET PO SCH (10:22)
[2021-02-08] MEDS: ESCITALOPRAM 10 MG TABLET PO SCH (10:22)
[2021-02-08] MEDS: CLOPIDOGREL 75 MG TABLET PO SCH (10:22)
[2021-02-08] MEDS: GABAPENTIN 300 MG CAPSULE PO SCH (10:22)
[2021-02-08 12:39] VITALS: BP 151/77
== END 2021-02-08 12:45 | disposition home health service (06) ==
LOC: EDUNIT# → SUATTDRO → EDBD → N.EDINP 02:18 → N.ED 02:18 → N.TELEN 07:38
PROVIDERS: ADMIT Internal Medicine; ATTEND Internal Medicine

== ENCOUNTER 2022-03-17 22:55 | Observation (INO) ==
[2022-03-17] MEDS ORDERED: ALBUTEROL/IPRATROPIUM 3 ML NEB RESP TX STA (23:14)
[2022-03-17] MEDS ORDERED: ONDANSETRON 4 MG/2 ML VIAL IV STA (23:14)
[2022-03-17] MEDS ORDERED: ASPIRIN 325 MG TABLET PO STA (23:14)
[2022-03-17] MEDS ORDERED: MORPHINE 2 MG/1 ML SYRINGE IV STA (23:14)
[2022-03-17] MEDS ORDERED: NITROGLYCERIN 2% OINT 1 INCH/GM PACK TOP STA (23:14)
[2022-03-17] MEDS ORDERED: FUROSEMIDE 100 MG/10 ML VIAL IV STA (23:14)
[2022-03-17 23:50] LABS: PT Patient Result 11.4 SECS (10.5-12.0); Partial Thromboplastin Time 29.9 SECS (23.7-32.9)
[2022-03-17 23:57] LABS: Albumin 3.3 G/DL (3.4-5.0); Bilirubin,Total 0.4 MG/DL (0.20-1.00); Calcium 7.9 MG/DL (8.5-10.1); Osmolality,Calculated 279.2 MOS/KG (273-304); Potassium 4.7 MMOL/L (3.5-5.1); Total Protein 7.6 G/DL (6.4-8.2)
[2022-03-18 00:09] LABS: Basophils # 0.1 10*3/uL (0.0-0.2); Basophils % 0.6 % (0.0-0.8); Eosinophils # 0.2 10*3/uL (0.0-0.87); Eosinophils % 2.8 % (0.00-10.9); Hematocrit 30.2 VOL% (42.0-52.0); Hemoglobin 9.9 GM/DL (14.0-18.0); Immature Granulocytes % 0.2 %; Immature Granulocytes Absolute 0.02 #; Lymphocytes # 1.3 10*3/uL (1.4-4.0); Lymphocytes % 15.8 % (21.2-54.2); Mean Corpuscular HGB Conc 32.8 GM/DL (32-36); Mean Corpuscular Volume 79.9 FL (87-102); Mean Platelet Volume 10.5 FL (9.6-12.0); Monocytes # 0.6 10*3/uL (0.11-0.8); Neutrophils % 73.6 % (38.7-73.9); Platelet Count 200 T/CUMM (130-400); Red Blood Count 3.78 MC/CUMM (3.8-5.5); Red Cell Distribution Width 14.1 % (9.3-17.3); White Blood Count 8.1 T/CUMM (4-12)
[2022-03-18] MEDS ORDERED: DEXTROSE 10% 250 ML BAG IV PRN (02:15)
[2022-03-18] MEDS ORDERED: ENOXAPARIN 120 MG/0.8 ML SYRINGE SUBCUT STA (02:15)
[2022-03-18] MEDS ORDERED: MORPHINE 2 MG/1 ML SYRINGE IV PRN (02:15)
[2022-03-18] MEDS ORDERED: ONDANSETRON 4 MG/2 ML VIAL IV PRN (02:15)
[2022-03-18] MEDS ORDERED: hydrALAZINE 20 MG/1 ML VIAL IV PRN (02:15)
[2022-03-18] MEDS ORDERED: ACETAMINOPHEN 325 MG TABLET PO PRN (02:15)
[2022-03-18] MEDS ORDERED: GLUCAGON 1 MG VIAL IM PRN (02:15)
[2022-03-18] MEDS ORDERED: MAGNESIUM SULF RIDER 2 GM/50 ML PREMIX IV ONE (02:46)
[2022-03-18] MEDS ORDERED: METHOCARBAMOL 750 MG TABLET PO PRN (02:49)
[2022-03-18 03:33] LABS: Basophils # 0.1 10*3/uL (0.0-0.2); Basophils % 0.7 % (0.0-0.8); Eosinophils # 0.2 10*3/uL (0.0-0.87); Eosinophils % 2.9 % (0.00-10.9); Hematocrit 31.7 VOL% (42.0-52.0); Hemoglobin 10.3 GM/DL (14.0-18.0); Immature Granulocytes % 0.4 %; Immature Granulocytes Absolute 0.03 #; Lymphocytes # 1.8 10*3/uL (1.4-4.0); Lymphocytes % 23.5 % (21.2-54.2); Mean Corpuscular HGB Conc 32.5 GM/DL (32-36); Mean Corpuscular Volume 80.5 FL (87-102); Mean Platelet Volume 10.5 FL (9.6-12.0); Monocytes # 0.7 10*3/uL (0.11-0.8); Monocytes % 9.2 % (1.7-12.7); Neutrophils % 63.3 % (38.7-73.9); Platelet Count 212 T/CUMM (130-400); Red Blood Count 3.94 MC/CUMM (3.8-5.5); Red Cell Distribution Width 14.2 % (9.3-17.3); White Blood Count 7.6 T/CUMM (4-12)
[2022-03-18 04:12] LABS: Calcium 7.9 MG/DL (8.5-10.1); Osmolality,Calculated 280.8 MOS/KG (273-304); Potassium 4.9 MMOL/L (3.5-5.1); Risk Ratio 2.87; Thyroid Stimulating Hormone 0.634 uIU/ml (0.358-3.74); VLDL Cholesterol 10.8 MG/DL
[2022-03-18] MEDS: INSULIN LISPRO 100 UNIT/ML SUBCUT SCH ×2 (08:04→11:24)
[2022-03-18] MEDS ORDERED: FUROSEMIDE 40 MG TABLET PO SCH (09:00)
[2022-03-18] MEDS ORDERED: GABAPENTIN 300 MG CAPSULE PO SCH (09:00)
[2022-03-18] MEDS ORDERED: CLOPIDOGREL 75 MG TABLET PO SCH (09:00)
[2022-03-18] MEDS ORDERED: carvediloL 25 MG TABLET PO SCH (09:00)
[2022-03-18] MEDS ORDERED: ESCITALOPRAM 10 MG TABLET PO SCH (09:00)
[2022-03-18] MEDS ORDERED: ASPIRIN CHEW 81 MG TABLET PO SCH (09:00)
[2022-03-18] MEDS ORDERED: SERTRALINE 50 MG TABLET PO SCH (09:00)
[2022-03-18] MEDS ORDERED: PANTOPRAZOLE 40 MG TABLET PO SCH (09:00)
[2022-03-18 12:17] VITALS: BP 151/72
[2022-03-18] MEDS ORDERED: ATORVASTATIN 20 MG TABLET PO SCH (21:00)
== END 2022-03-18 12:17 | disposition left against medical advice (07) ==
LOC: EDBD → EDUNIT# → N.EDINP 22:55 → N.ED 22:55 → N.EDINP 03-18 12:07
PROVIDERS: ADMIT Internal Medicine Geriatric Medicine; ATTEND Internal Medicine Geriatric Medicine

== ENCOUNTER 2022-05-08 18:53 | Inpatient (IN) ==
[2022-05-08] MEDS ORDERED: VANCOMYCIN INJ 1,000 MG in SODIUM CHLORIDE 0.9% 250 ML IV STA (21:16)
[2022-05-08 21:50] LABS: Basophils # 0.1 10*3/uL (0.0-0.2); Basophils % 0.9 % (0.0-0.8); Eosinophils # 0.6 10*3/uL (0.0-0.87); Eosinophils % 10.9 % (0.00-10.9); Hematocrit 26.1 VOL% (42.0-52.0); Hemoglobin 8.5 GM/DL (14.0-18.0); Immature Granulocytes % 0.4 %; Immature Granulocytes Absolute 0.02 #; Lymphocytes # 2.1 10*3/uL (1.4-4.0); Lymphocytes % 36.7 % (21.2-54.2); Mean Corpuscular HGB Conc 32.6 GM/DL (32-36); Mean Corpuscular Volume 80.3 FL (87-102); Mean Platelet Volume 10.3 FL (9.6-12.0); Monocytes # 0.4 10*3/uL (0.11-0.8); Monocytes % 6.8 % (1.7-12.7); Neutrophils % 44.3 % (38.7-73.9); Platelet Count 205 T/CUMM (130-400); Red Blood Count 3.25 MC/CUMM (3.8-5.5); White Blood Count 5.6 T/CUMM (4-12)
[2022-05-08 22:10] LABS: Albumin 3.2 G/DL (3.4-5.0); Bilirubin,Total 0.6 MG/DL (0.20-1.00); Calcium 8.1 MG/DL (8.5-10.1); Osmolality,Calculated 289.7 MOS/KG (273-304); Potassium 4.5 MMOL/L (3.5-5.1); Total Protein 8.9 G/DL (6.4-8.2)
[2022-05-08] MEDS ORDERED: GLUCAGON 1 MG VIAL IM PRN (23:59)
[2022-05-08] MEDS ORDERED: MORPHINE 2 MG/1 ML SYRINGE IV PRN (23:59)
[2022-05-09] MEDS ORDERED: DEXTROSE 10% 250 ML BAG IV PRN (00:15)
[2022-05-09 01:42] LABS: Albumin 3.3 G/DL (3.4-5.0); Bilirubin,Total 0.4 MG/DL (0.20-1.00); Calcium 8.7 MG/DL (8.5-10.1); Osmolality,Calculated 283.8 MOS/KG (273-304); Potassium 4.2 MMOL/L (3.5-5.1)
[2022-05-09] MEDS: PANTOPRAZOLE 40 MG TABLET PO SCH (08:37)
[2022-05-09] MEDS: CLOPIDOGREL 75 MG TABLET PO SCH (08:37)
[2022-05-09] MEDS: carvediloL 25 MG TABLET PO SCH ×2 (08:37→20:23)
[2022-05-09] MEDS: GABAPENTIN 300 MG CAPSULE PO SCH ×2 (08:37→20:23)
[2022-05-09] MEDS: ASPIRIN CHEW 81 MG TABLET PO SCH (08:38)
[2022-05-09] MEDS: FUROSEMIDE 80 MG TABLET PO SCH (08:38)
[2022-05-09] MEDS: SERTRALINE 50 MG TABLET PO SCH (08:38)
[2022-05-09] MEDS: INSULIN LISPRO 100 UNIT/ML SUBCUT SCH ×4 (08:38→20:23)
[2022-05-09 09:15] LABS: % Iron Saturation 17.8 % (18-50)
[2022-05-09 09:22] LABS: Folate 10.16 NG/ML (5.38-24.0)
[2022-05-09] MEDS: CHOLECALCIFEROL 1,000 UNIT TABLET PO SCH (11:45)
[2022-05-09] MEDS ORDERED: ATORVASTATIN 20 MG TABLET PO SCH (21:00)
[2022-05-10 05:49] LABS: Basophils % 0.7 % (0.0-0.8); Eosinophils # 0.4 10*3/uL (0.0-0.87); Eosinophils % 9.9 % (0.00-10.9); Hematocrit 25.7 VOL% (42.0-52.0); Hemoglobin 8.3 GM/DL (14.0-18.0); Immature Granulocytes % 0.2 %; Immature Granulocytes Absolute 0.01 #; Lymphocytes # 1.7 10*3/uL (1.4-4.0); Lymphocytes % 38.4 % (21.2-54.2); Mean Corpuscular HGB Conc 32.3 GM/DL (32-36); Mean Corpuscular Volume 79.8 FL (87-102); Mean Platelet Volume 10.1 FL (9.6-12.0); Monocytes # 0.4 10*3/uL (0.11-0.8); Monocytes % 8.5 % (1.7-12.7); Neutrophils % 42.3 % (38.7-73.9); Platelet Count 198 T/CUMM (130-400); Red Blood Count 3.22 MC/CUMM (3.8-5.5); Red Cell Distribution Width 15.9 % (9.3-17.3); White Blood Count 4.5 T/CUMM (4-12)
[2022-05-10 05:54] LABS: Calcium 8.2 MG/DL (8.5-10.1); Osmolality,Calculated 281.4 MOS/KG (273-304)
[2022-05-10] MEDS: INSULIN LISPRO 100 UNIT/ML SUBCUT SCH ×2 (08:09→11:55)
[2022-05-10] MEDS: ASPIRIN CHEW 81 MG TABLET PO SCH (09:00)
[2022-05-10] MEDS ORDERED: FERRIC GLUCONATE COMPLEX 125 MG in SODIUM CHLORIDE 0.9% 100 ML IV SCH (09:00)
[2022-05-10] MEDS: SERTRALINE 50 MG TABLET PO SCH (09:00)
[2022-05-10] MEDS: FUROSEMIDE 80 MG TABLET PO SCH (09:01)
[2022-05-10] MEDS: carvediloL 25 MG TABLET PO SCH (09:01)
[2022-05-10] MEDS: CHOLECALCIFEROL 1,000 UNIT TABLET PO SCH (09:01)
[2022-05-10] MEDS: GABAPENTIN 300 MG CAPSULE PO SCH (09:01)
[2022-05-10] MEDS: PANTOPRAZOLE 40 MG TABLET PO SCH (09:01)
[2022-05-10] MEDS: CLOPIDOGREL 75 MG TABLET PO SCH (09:01)
[2022-05-10 13:21] VITALS: BP 163/78
[2022-05-10] MEDS ORDERED: cefTRIAXone 1,000 MG in SODIUM CHLORIDE 0.9% 100 ML IV SCH (14:00)
[2022-05-10] MEDS ORDERED: cephALEXin 500 MG CAPSULE PO SCH (21:00)
== END 2022-05-10 14:50 | disposition home or self-care (01) | DRG 638 ==
LOC: N.ED 18:53 → N.EDINP 23:59 → N.3E 05-09 00:50
PROVIDERS: ADMIT Internal Medicine; ATTEND Internal Medicine